=== PATIENT | female | born 1955 | race Caucasian/White ===

== ENCOUNTER 2021-10-08 20:13 | Emergency (ER) | payer MEDICARE, SELFPAY ==
[2021-10-08 20:25] VITALS: BP 118/92; BP 135/65; PULSE 74; PULSE 84; RESP 22; TEMP 36.7; O2SAT 98; BMI 33.4
--- NOTE | 2021-10-08 20:40 | ED_ITS ---
HPI - Anxiety General Chief Complaint: Anxiety Stated Complaint: crisis Time Seen by Provider: 10/08/21 20:39 Source: patient Mode of arrival: ambulatory Limitations: no limitations History of Present Illness HPI narrative: patient is depressed and anxious about her mother and her brothers don't help. Today she thought that she does not want to live anymore. Patient does not have a therapist or psychiatrist MD complaint: anxiety Onset (ago): month(s) Severity: moderate Quality: constant Place: home Associated symptoms: denies other symptoms Related Data Allergies Allergy/AdvReac Type Severity Reaction Status Date / Time Penicillins [PENICILLINS] Allergy Intermediate HIVES Unverified 02/03/20 15:57 adhesive [ADHESIVE] Allergy Mild SKIN COMES Unverified 02/03/20 15:57 OFF WITH TAPE penicillin G Allergy Unknown hives Verified 07/22/19 00:00 adhesive tape AdvReac Unknown Uncoded 07/22/19 00:00 Review of Systems Constitutional: Constitutional: Reports no additional constitutional complaints Eyes: Eyes: Reports no additional eye complaints ENT: Denies dizziness Cardiovascular: Cardiovascular: Reports no additional cardiovascular complaint s Respiratory: Respiratory: Reports as per HPI Gastrointestinal: Gastrointestinal: Reports no additional gastrointestinal complaints Genitourinary: Genitourinary: Reports no additional female genitourinary complaints Musculoskeletal: Musculoskeletal: Reports no additional musculoskeletal complaints Integumentary/Breasts: Skin/Breast: Denies rash Neurologic: Reports system reviewed and no additional complaints, except as documented, Denies dizziness and Denies Sensory deficit (Neuro) Psychiatric: Psychiatric: Denies anxiety PMFSH Social History Social History Alcohol intake: current Alcohol intake frequency: a few times a month Patient Tobacco Use Status: Never used Tobacco Use of substances other than those prescribed or required for medical reasons: No Advance Directives: No Advance Directives Information Provided: No Physical Exam Vital Signs: Vital Signs: Last Vital Signs Temp 98.4 F 10/08/21 21:44 Pulse 80 10/08/21 21:44 Resp 16 10/08/21 21:44 BP 148/82 H 10/08/21 21:44 Pulse Ox 94 10/08/21 21:44 BMI result Body Mass Index 33.4 Const: Other: Anxious and tearfult General: healthy appearing Nutritional Appearance: average body habitus Orientation/consciousness: oriented to person and patient oriented x3 Limitations: no limitations HEENT: Head: Yes normal to inspection Ears: external ears normal General nose exam: Normal external nose present Mouth: Normal oral and palatal mucosa present and oropharynx normal Throat: Yes posterior oropharynx normal Eyes: General: appearance normal, both eyes and all related structures Neck: Other: supple Neck: Yes normal visual inspection Chest: Chest palpation & inspection: normal inspection of the chest Resp: Auscultation: clear to auscultation bilaterally Cardio: Jugular venous distension: no JVD Rate: regular rate Rhythm: regular rhythm Heart sounds: S1 normal heart sound present and S2 normal heart sound present GI: Inspection: Yes normal to inspection Palpation (GI): Soft to palpation, nontender and No hepatosplenomegaly present Auscultation: normal bowel sounds : General: Yes no CVA tenderness Back/Spine/Pelvis: Back: no CVA tenderness Skin: General skin exam: no rashes or lesions noted Neuro: General: oriented to person and patient oriented x3 Cranial nerves: Yes CN's II-XII intact bilaterally Motor exam (neuro): 5/5 motor strength present throughout Sensory Exam: No Sensory deficit (Neuro) Extrem: General: Yes normal to inspection Psych: Appearance: grossly normal Course Reevaluation(s) Reevaluation #1: Despite the patients alcohol level she is acting sober, she adamantly denies a suicide plan. Her agrees that she has never hurt herself and would never do that to her grandchildren. He is comfortable with the plan and has no concerns for suicide Time: 23:13 MDM - Anxiety Lab Data Result diagrams: 10/08/21 21:20 10/08/21 21:20 Labs: Lab Results 10/08/21 10/08/21 10/08/21 Range/Units 21:20 21:20 21:20 WBC 8.2 (4.8-10.8) X10*3/uL RBC 3.83 L (4.20-5.50) X10*6/uL Hgb 11.9 L (12.0-16.0) g/dl Hct 34.0 L (37.0-47.0) % MCV 88.8 (80.0-98.0) fL MCH 31.1 (27.0-33.0) pg MCHC 35.0 (31.0-35.0) g/dl RDW 13.0 (11.0-16.0) % Plt Count 196 (160-400) X10*3/uL MPV 10.7 (9.4-12.3) fL Immature Gran % (Auto) 0.2 (0.0-0.4) % Neut % (Auto) 59.6 (45-73) % Lymph % (Auto) 30.4 (20-40) % [place] % (Auto) 7.7 (2-11) % Eos % (Auto) 1.2 (0-4) % Baso % (Auto) 0.9 (0-2) % Lymph # (Auto) 2.5 (1.2-4.9) X10*3/uL [place] # (Auto) 0.6 (0.1-1.2) X10*3/uL Eos # (Auto) 0.1 (0.0-0.4) X10*3/uL Baso # (Auto) 0.1 (0.0-0.2) X10*3/uL Abs Immat Gran (auto) 0.02 (0.00-0.03) X10*3/uL Absolute Neuts (auto) 4.9 (2.0-8.3) x10*3/uL Absolute Nucleated RBC 0.000 (0.0-0.012) X10*3/uL Nucleated RBC % (auto) 0.0 (0.0-0.2) /100WBC Sodium 141 (135-145) mmol/L Potassium 3.9 (3.3-5.1) mmol/L Chloride 109 H (96-108) mmol/L Carbon Dioxide 22 (22-29) mmol/L Anion Gap 14 (12-20) BUN 15 (9-16) mg/dL Creatinine 0.74 (0.5-1.4) mg/dL Estim Creat Clear Calc 92.3 Estimated GFR > 60 Random Glucose 83 (60-115) mg/dL Calcium 8.7 (8.4-10.2) mg/dL Total Bilirubin 0.7 (0.0-1.0) mg/dL AST 19 (5-31) U/L ALT 14 (0-31) U/L Alkaline Phosphatase 85 (39-117) U/L Total Protein 6.2 L (6.5-8.0) g/dL Albumin 3.8 (3.5-5.0) g/dL Salicylates < 5.0 L (15-30) mg/dL Urine Opiates Screen Not Detected (Not Detect) Urine Fentanyl Screen Not Detected (Not Detect) Acetaminophen < 1 (<30) mcg/mL Ur Barbiturates Screen Not Detected (Not Detect) Ur Phencyclidine Scrn Not Detected (Not Detect) Ur Amphetamines Screen Not Detected (Not Detect) U Benzodiazepines Scrn Not Detected (Not Detect) Urine Cocaine Screen Not Detected (Not Detect) U Marijuana (THC) Screen Not Detected (Not Detect) Ethyl Alcohol mg/dL 10/08/21 Range/Units 21:20 WBC (4.8-10.8) X10*3/uL RBC (4.20-5.50) X10*6/uL Hgb (12.0-16.0) g/dl Hct (37.0-47.0) % MCV (80.0-98.0) fL MCH (27.0-33.0) pg MCHC (31.0-35.0) g/dl RDW (11.0-16.0) % Plt Count (160-400) X10*3/uL MPV (9.4-12.3) fL Immature Gran % (Auto) (0.0-0.4) % Neut % (Auto) (45-73) % Lymph % (Auto) (20-40) % [place] % (Auto) (2-11) % Eos % (Auto) (0-4) % Baso % (Auto) (0-2) % Lymph # (Auto) (1.2-4.9) X10*3/uL [place] # (Auto) (0.1-1.2) X10*3/uL Eos # (Auto) (0.0-0.4) X10*3/uL Baso # (Auto) (0.0-0.2) X10*3/uL Abs Immat Gran (auto) (0.00-0.03) X10*3/uL Absolute Neuts (auto) (2.0-8.3) x10*3/uL Absolute Nucleated RBC (0.0-0.012) X10*3/uL Nucleated RBC % (auto) (0.0-0.2) /100WBC Sodium (135-145) mmol/L Potassium (3.3-5.1) mmol/L Chloride (96-108) mmol/L Carbon Dioxide (22-29) mmol/L Anion Gap (12-20) BUN (9-16) mg/dL Creatinine (0.5-1.4) mg/dL Estim Creat Clear Calc Estimated GFR Random Glucose (60-115) mg/dL Calcium (8.4-10.2) mg/dL Total Bilirubin (0.0-1.0) mg/dL AST (5-31) U/L ALT (0-31) U/L Alkaline Phosphatase (39-117) U/L Total Protein (6.5-8.0) g/dL Albumin (3.5-5.0) g/dL Salicylates (15-30) mg/dL Urine Opiates Screen (Not Detect) Urine Fentanyl Screen (Not Detect) Acetaminophen (<30) mcg/mL Ur Barbiturates Screen (Not Detect) Ur Phencyclidine Scrn (Not Detect) Ur Amphetamines Screen (Not Detect) U Benzodiazepines Scrn (Not Detect) Urine Cocaine Screen (Not Detect) U Marijuana (THC) Screen (Not Detect) Ethyl Alcohol 259 mg/dL Discharge Plan Discharge Clinical Impression: Alcoholism, Acute anxiety, Depression Patient Disposition: Home, Self-Care Instructions: Alcohol Dependence (ED), Anxiety (ED), Depression (ED) Additional Instructions: [facility] with [facility], return for worsening depression Referrals: Miesha Wiseman MD [Primary Care Provider] - 5 days
[2021-10-08 21:25] LABS: MANUAL DIFF FLAG NO
[2021-10-08 21:29] LABS: Basophils Absolute Auto 0.1 X10*3/uL (0.0-0.2); Basophils Percent Auto 0.9 % (0-2); Eosinophils Absolute Auto 0.1 X10*3/uL (0.0-0.4); Eosinophils Percent Auto 1.2 % (0-4); Hemoglobin 11.9 g/dl (12.0-16.0); Imm Gran Abs Auto 0.02 X10*3/uL (0.00-0.03); Imm Gran Pct Auto 0.2 % (0.0-0.4); Lymphocytes Absolute Auto 2.5 X10*3/uL (1.2-4.9); Lymphocytes Percent Auto 30.4 % (20-40); Mean Corpuscular Hemoglobin 31.1 pg (27.0-33.0); Mean Corpuscular Volume 88.8 fL (80.0-98.0); Mean Platelet Volume 10.7 fL (9.4-12.3); Monocytes Absolute Auto 0.6 X10*3/uL (0.1-1.2); Monocytes Percent Auto 7.7 % (2-11); Neutrophils Absolute Auto 4.9 x10*3/uL (2.0-8.3); Neutrophils Percent Auto 59.6 % (45-73); Platelet Count 196 X10*3/uL (160-400); Red Blood Count 3.83 X10*6/uL (4.20-5.50); White Blood Count 8.2 X10*3/uL (4.8-10.8)
[2021-10-08 21:40] LABS: Ethanol 259 mg/dL
[2021-10-08 21:43] LABS: Amphetamine Screen Urine Not Detected (Not Detect); Barbiturates, Urine Not Detected (Not Detect); Benzodiazepines Screen Urine Not Detected (Not Detect); Cannabinoid Screen Urine Not Detected (Not Detect); Cocaine Screen Urine Not Detected (Not Detect); Fentanyl, urine Not Detected (Not Detect); Opiate Screen Urine Not Detected (Not Detect); Phencyclidine Screen Urine Not Detected (Not Detect)
[2021-10-08 21:44] VITALS: BP 148/82; PULSE 80; RESP 16; TEMP 36.9; O2SAT 94
[2021-10-08 21:45] LABS: Acetaminophen LAB < 1 mcg/mL (<30); Alanine Aminotransferase 14 U/L (0-31); Albumin Level 3.8 g/dL (3.5-5.0); Alkaline Phosphatase 85 U/L (39-117); Anion Gap 14 (12-20); Aspartate Amino Transferase 19 U/L (5-31); Bilirubin Total 0.7 mg/dL (0.0-1.0); Blood Urea Nitrogen 15 mg/dL (9-16); Calcium 8.7 mg/dL (8.4-10.2); Carbon Dioxide 22 mmol/L (22-29); Chloride 109 mmol/L (96-108); Creatinine Clr Calc Pharmacy 92.3; Estimated Glomerular Filt Rate > 60; Glucose Random 83 mg/dL (60-115); Potassium 3.9 mmol/L (3.3-5.1); Salicylate < 5.0 mg/dL (15-30); Sodium 141 mmol/L (135-145); Total Protein 6.2 g/dL (6.5-8.0)
--- NOTE | 2021-10-08 21:49 | PC.NURSE ---
Pt stated I'm not waiting 24 hours to see a therapist. Christiano RN said that he would inquire about how much time it takes, but did not know exactly.
[2021-10-08 23:19] VITALS: BP 139/76; PULSE 87; RESP 18; TEMP 36.9; O2SAT 98
== END 2021-10-08 23:21 | disposition home or self-care (01) ==
PROVIDERS: Emergency Provider Emergency Medicine; PCP Internal Medicine
DX: F10.20 Alcohol dependence, uncomplicated (principal); Y90.8 Blood alcohol level of 240 mg/100 ml or more; F41.9 Anxiety disorder, unspecified; F32.A Depression, unspecified
CPT/HCPCS: 80053; 80143; 80179; 80307; 82077; 85025; 99284

== ENCOUNTER 2022-03-13 19:27 | Inpatient (IN) | payer MEDICARE, SELFPAY ==
[2022-03-13] VITALS (8 sets, daily range): BP systolic 72–118; BP diastolic 42–68; PULSE 80–88; RESP 15–22; TEMP 36.8; O2SAT 93–95; BMI 35.2
--- NOTE | ~2022-03-13 | XR_ITS ---
EXAMINATION: XR CHEST CLINICAL INFORMATION: Chest pain COMPARISON: 06/25/2018 TECHNIQUE: Frontal view of the chest was obtained. FINDINGS: There is a new rounded 7.5 cm sized left perihilar density seen. Differential would include pneumonia (most likely) versus a mass. Heart size normal. No pleural effusions. Bony thorax unremarkable. XR/XR chest 1V IMPRESSION: New left perihilar density as described above. Contrast-enhanced CT scan of the chest is recommended for further evaluation.
--- NOTE | ~2022-03-13 | CT_ITS ---
EXAMINATION: CT ANGIOGRAM OF THE CHEST WITH AND WITHOUT CONTRAST (CT PULMONARY ANGIOGRAM FOR PE) CLINICAL INFORMATION: Chest pain COMPARISON: Chest radiograph earlier today TECHNIQUE: Prior to contrast administration, noncontrast localization images were obtained. Subsequently, multidetector volumetric imaging was performed from the thoracic inlet to below the diaphragms following the administration of 65 mL Omnipaque 350 intravenous contrast. No contrast reaction reported Sagittal, coronal, and MIP oblique sagittal reformatted images were obtained on the CT workstation, uploaded to PACS, and reviewed. This CT examination was performed using dose optimization techniques as appropriate, variously including the following: *Automated exposure control *Adjustment of mA and/or kV according to patient size (this includes techniques or standardized protocols for targeted exams where dose is matched to indication/reason for exam; i.e. extremities or head) *Use of iterative reconstruction technique Total exam dose-length product 391 mGy-cm FINDINGS: QUALITY OF STUDY/CONTRAST BOLUS: Suboptimal. Both the thoracic aorta and the pulmonary veins are better opacified pulmonary arteries. PULMONARY ARTERIES: No large central emboli are seen. Beyond that, assessment is not possible THORACIC AORTA: No aneurysm or dissection. LUNG: Consolidation is present in the left lower lobe predominantly in the superior segment. Blood vessels can be seen traversing through the central air bronchograms are seen. PLEURA: No pleural effusion or pneumothorax. MEDIASTINUM: Normal heart size. No pericardial effusion. No hilar or mediastinal lymphadenopathy. No evidence of septal bowing or right heart strain. CHEST WALL/AXILLA: No axillary or internal mammary lymphadenopathy. OSSEOUS STRUCTURES: No acute or suspicious osseous abnormality. UPPER ABDOMEN: Probable hepatic steatosis. Gallstones are partially visualized with at least one 1.8 cm stone present. No reflux of contrast into the hepatic veins to suggest elevated right heart pressures. CT/CT angio chest PE protocol IMPRESSION: 1. No large central pulmonary emboli are seen. 2. Left lower lobe pneumonia. Follow-up after treatment to assure clearing. 3. Incidental note made of hepatic steatosis and cholelithiasis. VTE: indeterminate. If it is necessary to exclude pulmonary emboli, a repeat study or VQ scan can be performed for further evaluation.
--- NOTE | ~2022-03-13 | XR_ITS ---
EXAMINATION: XR CHEST CLINICAL INFORMATION: Chest pain COMPARISON: 03/14/2022 TECHNIQUE: Frontal view of the chest was obtained. FINDINGS: Cardiac leads overlie the chest. Right internal jugular central venous catheter terminates near the cavoatrial junction. The lungs are well expanded. Redemonstration of the left midlung airspace opacity. Central vascular prominence remains. No pleural effusion or pneumothorax. The cardiomediastinal silhouette is within normal limits. XR/XR chest 1V IMPRESSION: Right internal jugular central catheter terminates near the cavoatrial junction. No pneumothorax. Similar left lung airspace opacity.
--- NOTE | ~2022-03-13 | XR_ITS ---
EXAMINATION: XR CHEST CLINICAL INFORMATION: Shortness of breath COMPARISON: 03/13/2022 TECHNIQUE: Frontal view of the chest was obtained. FINDINGS: Cardiac leads overlie the chest. The lungs are well expanded. Redemonstration of the left midlung airspace opacity. Central vascular prominence. No pleural effusion or pneumothorax. The cardiomediastinal silhouette is within normal limits. XR/XR chest 1V IMPRESSION: Redemonstration of the left midlung airspace opacity. This is similar to prior. Follow-up to resolution.
--- NOTE | 2022-03-13 19:36 | ECG_ITS ---
Test Reason : CHEST PAIN Blood Pressure : / mmHG Vent. Rate : 084 BPM Atrial Rate : 084 BPM P-R Int : 128 ms QRS Dur : 082 ms QT Int : 358 ms P-R-T Axes : 024 -10 021 degrees QTc Int : 423 ms Normal sinus rhythm Minimal voltage criteria for LVH, may be normal variant ( R in aVL ) RSR' or QR pattern in V1 suggests right ventricular conduction delay Otherwise normal ECG When compared with ECG of 24-JUN-2018 23:05, No significant change was found Referred By: Generic ED Physician Electronically Signed By:ZAC WOLFE MD
[2022-03-13 20:05] LABS: Basophils Percent Auto 0.2 % (0-2); Eosinophils Absolute Auto 0.1 X10*3/uL (0.0-0.4); Eosinophils Percent Auto 0.7 % (0-4); Hematocrit 34.2 % (37.0-47.0); Hemoglobin 11.7 g/dl (12.0-16.0); Imm Gran Abs Auto 0.08 X10*3/uL (0.00-0.03); Imm Gran Pct Auto 0.4 % (0.0-0.4); Lymphocytes Absolute Auto 1.2 X10*3/uL (1.2-4.9); Lymphocytes Percent Auto 5.8 % (20-40); MANUAL DIFF FLAG SCAN; Mean Corpuscular HGB Conc 34.2 g/dl (31.0-35.0); Mean Corpuscular Hemoglobin 29.8 pg (27.0-33.0); Mean Corpuscular Volume 87.2 fL (80.0-98.0); Monocytes Absolute Auto 0.4 X10*3/uL (0.1-1.2); Monocytes Percent Auto 2.1 % (2-11); Neutrophils Absolute Auto 18.1 x10*3/uL (2.0-8.3); Neutrophils Percent Auto 90.8 % (45-73); Platelet Count 162 X10*3/uL (160-400); Red Blood Count 3.92 X10*6/uL (4.20-5.50); Red Cell Distribution Width 13.3 % (11.0-16.0); SCAN SMEAR FLAG 1; White Blood Count 19.9 X10*3/uL (4.8-10.8)
--- NOTE | 2022-03-13 20:12 | ED.URI ---
HPI - URI/Sore Throat General Chief Complaint: Upper Respiratory Symptoms Stated Complaint: chest pain, diff breathing, back pain Time Seen by Provider: 03/13/22 20:00 History of Present Illness HPI Narrative: Patient is a 66-year-old female with a history of coughing congestion upper respiratory symptoms that is been ongoing for last 3 weeks. Positive nausea positive shortness of breath patient tried to use steroid Tamiflu but to no avail. Patient never been tested positive for influenza. Feels generally weak. Patient had 3 COVID test all negative. She is vaccinated for COVID. She had a chest pain is pretty constant. Another type of chest pain that is worse with movement worse with coughing. Patient is from home. Positive dizziness weakness. Positive nausea vomiting Related Data Allergies Allergy/AdvReac Type Severity Reaction Status Date / Time Penicillins [PENICILLINS] Allergy Intermediate HIVES Verified 03/13/22 19:53 adhesive [ADHESIVE] Allergy Mild SKIN COMES Verified 03/13/22 19:53 OFF WITH TAPE penicillin G Allergy Unknown hives Verified 03/13/22 19:53 Review of Systems Review of Systems: positive generalized malaise weakness. Positive nausea vomiting positive coughing congestion upper respiratory symptoms positive chest pain Yes all other systems are reviewed and are negative PMFSH Past Medical History Attestation statement: The following information was validated with the patient. Medical History (Updated 03/14/22 @ 00:12 by Jade Orourke MD) Hypertension Hypothyroid Mood disorder Social History Social History Alcohol intake: current Alcohol intake frequency: a few times a month Patient Tobacco Use Status: Never used Tobacco Advance Directives: No Advance Directives Information Provided: No Physical Exam Vital Signs: Vital Signs: Last Vital Signs Temp 97.7 F 03/14/22 01:46 Pulse 77 03/14/22 02:12 Resp 19 03/14/22 01:46 BP 71/32 L 03/14/22 02:12 Pulse Ox 95 03/14/22 01:46 O2 Del Method 03/14/22 01:46 O2 Flow Rate 2.5 03/14/22 01:46 BMI result Body Mass Index 35.2 Appearance: Alert. Oriented X3. No acute distress. Eyes: Pupils equal, round and reactive to light. ENT: Pharynx normal. Neck: Normal inspection. Neck supple. No lymph nodes noted. No crepitus CVS: Normal heart rate and rhythm. Pulses normal. Normal S1 and S2 Respiratory: No respiratory distress. Breath sounds normal. No Wheezing. No rales Abdomen: Soft and nontender. No rigidity. No distention. good BS x4 Skin: Skin warm and dry. Normal skin color. Normal skin turgor. Extremities: No lower extremity edema. Neurovascular intact to all extremities. No Lacerations. No Rash Neuro: Oriented X 3. No motor deficit. No sensory deficit. Moving all extermities. No slurred speech MDM - URI/Sore Throat MDM Narrative Medical decision making narrative: Patient initially had a low blood pressure. Had a white count of approximately 20. Hep coughing upper respiratory 7 symptoms O2 sat was 95% on room air. Chest x-ray showed a questionable infiltrate. Patient's lactate was 1.9. Not elevated. Given IV fluids. Total of 30 cc/kilos IV fluids. Patient started on Rocephin immediately. Cultures were obtained. Will also start on azithromycin for outpatient pneumonia. CTA was done to rule out the possibility of PE. There was no pulmonary emboli only a large left lower lobe infiltrate. After IV fluids patient's blood pressure recovered to approximately 105/70. Patient's heart rate is 80. She is feels symptomatically improved. Patient to be admitted to the hospitalist service. Currently in stable condition. Her COVID test today was again negative. Flu RSV were negative. Troponin was negative. 9:30Patient reassessed after IV fluids symptomatic Hermelinda improved. Heart rate is 80. No distress. Will discussed with hospitalist team for admission. 1045pm Ask nursing to put in additional IVs. reinforce to nursing that we want to get the full 30 cc per kg of IV fluid in a soon as possible. Symptomatically patient continued to improve. 2 am patient initial blood pressure improved. We got a reading that was in the 1 teens over 70. However as the night progressed patient's blood pressure dropped again. Attempted to give patient midodrine. Attempted to give patient albumin. Unfortunately blood pressure continued to drop. A central line was placed Under ultrasound. Will start patient on Levophed. There is no ICU bed here at [facility]. We will go ahead and try to transfer patient to [facility] as [facility] is completely Full and is not accepting transfers Medical Records Attestation: I reviewed the patient's medical records. Lab Data Attestation: I reviewed the patient's lab results. Result diagrams: 03/13/22 19:53 03/13/22 19:53 Labs: Lab Results 03/13/22 03/13/22 03/13/22 Range/Units 19:53 19:53 19:53 WBC 19.9 H (4.8-10.8) X10*3/uL RBC 3.92 L (4.20-5.50) X10*6/uL Hgb 11.7 L (12.0-16.0) g/dl Hct 34.2 L (37.0-47.0) % MCV 87.2 (80.0-98.0) fL MCH 29.8 (27.0-33.0) pg MCHC 34.2 (31.0-35.0) g/dl RDW 13.3 (11.0-16.0) % Plt Count 162 (160-400) X10*3/uL MPV 11.0 (9.4-12.3) fL Immature Gran % (Auto) 0.4 (0.0-0.4) % Neut % (Auto) 90.8 H (45-73) % Lymph % (Auto) 5.8 L (20-40) % [place] % (Auto) 2.1 (2-11) % Eos % (Auto) 0.7 (0-4) % Baso % (Auto) 0.2 (0-2) % Lymph # (Auto) 1.2 (1.2-4.9) X10*3/uL [place] # (Auto) 0.4 (0.1-1.2) X10*3/uL Eos # (Auto) 0.1 (0.0-0.4) X10*3/uL Baso # (Auto) 0.0 (0.0-0.2) X10*3/uL Abs Immat Gran (auto) 0.08 H (0.00-0.03) X10*3/uL Absolute Neuts (auto) 18.1 H (2.0-8.3) x10*3/uL Absolute Nucleated RBC 0.000 (0.0-0.012) X10*3/uL Nucleated RBC % (auto) 0.0 (0.0-0.2) /100WBC Smear Tech's Comments VERIFIED D-Dimer High Sensitivty NG/ML Sodium 141 (135-145) mmol/L Potassium 3.9 (3.3-5.1) mmol/L Chloride 105 (96-108) mmol/L Carbon Dioxide 24 (22-29) mmol/L Anion Gap 16 (12-20) BUN 24 H D (9-16) mg/dL Creatinine 0.80 (0.5-1.4) mg/dL Estim Creat Clear Calc 83.7 Estimated GFR > 60 Random Glucose 117 H (60-115) mg/dL Lactic Acid (0.5-2.0) mmol/L Calcium 9.0 (8.4-10.2) mg/dL Troponin I High Sens < 3.5 (<3.5-17.0) ng/L COVID-19 ([facility]) (Negative) COVID-19 Clin Com Influenza Type A (PCR) (Negative) Influenza Type B (PCR) (Negative) RSV RNA Qual (PCR) (Negative) SARS-CoV-2 RNA (RT-PCR) (Negative) 03/13/22 03/13/22 03/13/22 Range/Units 19:53 19:53 20:36 WBC (4.8-10.8) X10*3/uL RBC (4.20-5.50) X10*6/uL Hgb (12.0-16.0) g/dl Hct (37.0-47.0) % MCV (80.0-98.0) fL MCH (27.0-33.0) pg MCHC (31.0-35.0) g/dl RDW (11.0-16.0) % Plt Count (160-400) X10*3/uL MPV (9.4-12.3) fL Immature Gran % (Auto) (0.0-0.4) % Neut % (Auto) (45-73) % Lymph % (Auto) (20-40) % [place] % (Auto) (2-11) % Eos % (Auto) (0-4) % Baso % (Auto) (0-2) % Lymph # (Auto) (1.2-4.9) X10*3/uL [place] # (Auto) (0.1-1.2) X10*3/uL Eos # (Auto) (0.0-0.4) X10*3/uL Baso # (Auto) (0.0-0.2) X10*3/uL Abs Immat Gran (auto) (0.00-0.03) X10*3/uL Absolute Neuts (auto) (2.0-8.3) x10*3/uL Absolute Nucleated RBC (0.0-0.012) X10*3/uL Nucleated RBC % (auto) (0.0-0.2) /100WBC Smear Tech's Comments D-Dimer High Sensitivty 367 NG/ML Sodium (135-145) mmol/L Potassium (3.3-5.1) mmol/L Chloride (96-108) mmol/L Carbon Dioxide (22-29) mmol/L Anion Gap (12-20) BUN (9-16) mg/dL Creatinine (0.5-1.4) mg/dL Estim Creat Clear Calc Estimated GFR Random Glucose (60-115) mg/dL Lactic Acid (0.5-2.0) mmol/L Calcium (8.4-10.2) mg/dL Troponin I High Sens (<3.5-17.0) ng/L COVID-19 ([facility]) Negative (Negative) COVID-19 Clin Com See Note Influenza Type A (PCR) NEGATIVE (Negative) Influenza Type B (PCR) NEGATIVE (Negative) RSV RNA Qual (PCR) NEGATIVE (Negative) SARS-CoV-2 RNA (RT-PCR) NEGATIVE (Negative) 03/13/22 Range/Units 20:36 WBC (4.8-10.8) X10*3/uL RBC (4.20-5.50) X10*6/uL Hgb (12.0-16.0) g/dl Hct (37.0-47.0) % MCV (80.0-98.0) fL MCH (27.0-33.0) pg MCHC (31.0-35.0) g/dl RDW (11.0-16.0) % Plt Count (160-400) X10*3/uL MPV (9.4-12.3) fL Immature Gran % (Auto) (0.0-0.4) % Neut % (Auto) (45-73) % Lymph % (Auto) (20-40) % [place] % (Auto) (2-11) % Eos % (Auto) (0-4) % Baso % (Auto) (0-2) % Lymph # (Auto) (1.2-4.9) X10*3/uL [place] # (Auto) (0.1-1.2) X10*3/uL Eos # (Auto) (0.0-0.4) X10*3/uL Baso # (Auto) (0.0-0.2) X10*3/uL Abs Immat Gran (auto) (0.00-0.03) X10*3/uL Absolute Neuts (auto) (2.0-8.3) x10*3/uL Absolute Nucleated RBC (0.0-0.012) X10*3/uL Nucleated RBC % (auto) (0.0-0.2) /100WBC Smear Tech's Comments D-Dimer High Sensitivty NG/ML Sodium (135-145) mmol/L Potassium (3.3-5.1) mmol/L Chloride (96-108) mmol/L Carbon Dioxide (22-29) mmol/L Anion Gap (12-20) BUN (9-16) mg/dL Creatinine (0.5-1.4) mg/dL Estim Creat Clear Calc Estimated GFR Random Glucose (60-115) mg/dL Lactic Acid 1.9 (0.5-2.0) mmol/L Calcium (8.4-10.2) mg/dL Troponin I High Sens (<3.5-17.0) ng/L COVID-19 ([facility]) (Negative) COVID-19 Clin Com Influenza Type A (PCR) (Negative) Influenza Type B (PCR) (Negative) RSV RNA Qual (PCR) (Negative) SARS-CoV-2 RNA (RT-PCR) (Negative) Procedures Central Line Placement Right IJ: Time Out Performed: Yes Patient Placed on Monitor/Pulse Ox: Yes MD Prep: mask, gown and gloves Central Line Prep: Chlorhexidine scrub Local Anesthetic: lidocaine 1% Amount of anesthesia used (mL): 3 Ultrasound Used for Placement: Yes Central Line Lumen Inserted: triple Post Procedure: sutured in place, good blood return, all ports aspirated, flushed, capped and sterile dressing applied Post Procedure X-Ray: no pneumothorax seen Patient Tolerated Procedure: well Complications: none Critical Care Time Critical Care Time Critical Care Time: Yes Total Critical Care Time: 90 Attestation: I have personally provided 90 minutes of critical care time exclusive of time spent on separately billable procedures. Time includes review of lab data, radiology results, discussion with consultants, and monitoring for potential decompensation. Interventions were performed as documented above Discharge Plan Discharge Clinical Impression: Pneumonia Patient Disposition: Admitted As Inpatient
[2022-03-13 20:17] LABS: COVID-19 Test Negative (Negative); IDNOW Serial# 55D5AD1C
[2022-03-13 20:20] LABS: Anion Gap 16 (12-20); Blood Urea Nitrogen 24 mg/dL (9-16); Carbon Dioxide 24 mmol/L (22-29); Chloride 105 mmol/L (96-108); Creatinine Clr Calc Pharmacy 83.7; Estimated Glomerular Filt Rate > 60; Glucose Random 117 mg/dL (60-115); Potassium 3.9 mmol/L (3.3-5.1); Sodium 141 mmol/L (135-145)
[2022-03-13 20:22] LABS: SLIDE REVIEW VERIFIED
[2022-03-13 20:28] LABS: Troponin-I High Sensitivity < 3.5 ng/L (<3.5-17.0)
[2022-03-13 20:29] LABS: D Dimer High Sensitivity 367 NG/ML
[2022-03-13] MEDS: iohexoL 350 MG/ML 100 ML INFUS..BTL IV (20:46)
[2022-03-13 20:54] LABS: Lactic Acid 1.9 mmol/L (0.5-2.0)
[2022-03-13] MEDS: 0.9 % Sodium Chloride 1,000 ML 999 ML IV ×2 (21:09→21:34)
[2022-03-13] MEDS: cefTRIAXone sodium 1 GM in 0.9 % Sodium Chloride 50 ML IV (21:09)
[2022-03-13 21:19] LABS: Influenza A PCR NEGATIVE (Negative); Influenza B PCR NEGATIVE (Negative); Resp Syncy Virus RNA Qual PCR NEGATIVE (Negative); SARS COV2 PCR INHOUSE NEGATIVE (Negative)
--- NOTE | 2022-03-13 21:37 | PC.NURSE ---
pt very uncomfortable - c/o 10/10 pain to lower back. MD Del Castillo aware. BP down to 72/47. iv fluids running x 2 liters w/ pressure bag. MD Del Castillo aware of pain but states priority is to get patient BP up. continuous monitoring in place.
[2022-03-13] MEDS: Azithromycin 500 MG in 0.9 % Sodium Chloride 250 ML 125 MG IV (23:09)
--- NOTE | 2022-03-13 23:21 | PC.NURSE ---
second iv line placed, pt receiving 4th liter bolus of normal saline. azithromycin running. pt still in 10/10 pain and very uncomfortable. Del Castillo aware. states he will order med once blood pressure remains stable. BP back down to 93/50. continuous monitoring in place. at bedside
[2022-03-13] MEDS: Benzonatate 100 MG CAPSULE PO (23:58)
[2022-03-13] MEDS: Enoxaparin Sodium 40 MG/0.4 ML SYRINGE SUBCUT (23:58)
[2022-03-14] VITALS (18 sets, daily range): BP systolic 71–132; BP diastolic 32–77; PULSE 51–92; RESP 14–26; TEMP 36.2–36.9; O2SAT 91–97; BMI 35.2
--- NOTE | 2022-03-14 00:08 | PM.IMHP ---
History of Present Illness Date of Service: 03/14/22 Chief Complaint: Dyspnea This is a 66-year-old female with pertinent history of essential hypertension, hypothyroidism, mood disorder who presents to the emergency department for evaluation of dyspnea. Patient states she had symptoms of upper respiratory infection including runny nose and watering of eyes for the last 3 weeks. She saw her PCP who gave her a steroid pack and Tamiflu but that did not help her. She tested multiple times for COVID and flu and was negative. Subsequently patient developed productive cough with chills. No documented temperature. Also has associated generalized weakness and pleuritic chest discomfort. Did have episodes of nausea and nonbloody emesis. Denies palpitations, abdominal discomfort, changes in urinary or bowel habits. Does have sick contact at home In the ER, patient was found to be hypotensive and imaging was concerning for left-sided infiltrate. Review of Systems Review of Systems: All 13 review of systems are negative except as noted in [facility] Medical History (Updated 03/14/22 @ 00:12 by Jade Orourke MD) Hypertension Hypothyroid Mood disorder Functional capacity: independent ambulation Social History Alcohol intake: current Alcohol intake frequency: a few times a month Patient Tobacco Use Status: Never used Tobacco Advance Directives: No Advance Directives Information Provided: No Meds Allergies Allergy/AdvReac Type Severity Reaction Status Date / Time Penicillins [PENICILLINS] Allergy Intermediate HIVES Verified 03/13/22 19:53 adhesive [ADHESIVE] Allergy Mild SKIN COMES Verified 03/13/22 19:53 OFF WITH TAPE penicillin G Allergy Unknown hives Verified 03/13/22 19:53 Active Medications: Current Medications Acetaminophen (Acetaminophen 325 Mg Tablet) 650 mg PO Q6H PRN PRN Reason: Pain, Mild (Pain Scale 1-3) Enoxaparin Sodium (Enoxaparin Sodium 40 Mg/0.4 Ml Syringe) 40 mg SUBCUT Q24H [facility]ENDING SALE TO [facility] Last Admin: 03/13/22 23:58 Dose: 40 mg Azithromycin 500 mg/ Sodium (Chloride) 250 mls @ 125 mls/hr IV ONCE ONE Stop: 03/14/22 00:13 Last Admin: 03/13/22 23:09 Dose: 125 mls/hr Azithromycin 500 mg/ Sodium (Chloride) 250 mls @ 125 mls/hr IV Q24H [facility] Ceftriaxone Sodium 1 gm/ (Sodium Chloride) 50 mls @ 100 mls/hr IV Q24H [facility] TO [facility] Melatonin (Melatonin 3 Mg Tablet) 6 mg PO BEDTIME PRN PRN Reason: Insomnia Ondansetron HCl (Ondansetron Hcl 4 Mg/2 Ml Vial) 4 mg IVPUSH Q8H PRN PRN Reason: Nausea and Vomiting Pharmacy Consult (Consult Rx Perform Med Rec) 1 each MISCELLANE ONCE PRN PRN Reason: Consult order Sodium Chloride (0.9 % Sodium Chloride Flush 3 Ml Syringe) 3 ml IVFLUSH QSHIFT [facility]END[facility] TO [facility] Physical Exam Vital Signs and Narrative: Vital Signs: Last Vital Signs Temp 98.2 F 03/13/22 19:50 Pulse 85 03/13/22 23:37 Resp 20 03/13/22 23:37 BP 118/68 03/13/22 23:37 Pulse Ox 93 03/13/22 23:37 O2 Del Method 03/13/22 23:37 BMI result Body Mass Index 35.2 Results Labs CBC and Chem 7: 03/13/22 19:53 03/13/22 19:53 Labs: Laboratory Results - last 24 hr 03/13/22 03/13/22 03/13/22 19:53 19:53 19:53 MCV 87.2 MCH 29.8 MCHC 34.2 RDW 13.3 Plt Count 162 MPV 11.0 Immature Gran % (Auto) 0.4 Neut % (Auto) 90.8 H Lymph % (Auto) 5.8 L [place] % (Auto) 2.1 Eos % (Auto) 0.7 Baso % (Auto) 0.2 Lymph # (Auto) 1.2 [place] # (Auto) 0.4 Eos # (Auto) 0.1 Baso # (Auto) 0.0 Abs Immat Gran (auto) 0.08 H Absolute Neuts (auto) 18.1 H Absolute Nucleated RBC 0.000 Nucleated RBC % (auto) 0.0 Smear Tech's Comments VERIFIED D-Dimer High Sensitivty Anion Gap 16 Estim Creat Clear Calc 83.7 Estimated GFR > 60 Random Glucose 117 H Lactic Acid Calcium 9.0 Troponin I High Sens < 3.5 COVID-19 ([facility]) COVID-19 Clin Com Influenza Type A (PCR) Influenza Type B (PCR) RSV RNA Qual (PCR) SARS-CoV-2 RNA (RT-PCR) 03/13/22 03/13/22 03/13/22 19:53 19:53 20:36 MCV MCH MCHC RDW Plt Count MPV Immature Gran % (Auto) Neut % (Auto) Lymph % (Auto) [place] % (Auto) Eos % (Auto) Baso % (Auto) Lymph # (Auto) [place] # (Auto) Eos # (Auto) Baso # (Auto) Abs Immat Gran (auto) Absolute Neuts (auto) Absolute Nucleated RBC Nucleated RBC % (auto) Smear Tech's Comments D-Dimer High Sensitivty 367 Anion Gap Estim Creat Clear Calc Estimated GFR Random Glucose Lactic Acid Calcium Troponin I High Sens COVID-19 ([facility]) Negative COVID-19 Clin Com See Note Influenza Type A (PCR) NEGATIVE Influenza Type B (PCR) NEGATIVE RSV RNA Qual (PCR) NEGATIVE SARS-CoV-2 RNA (RT-PCR) NEGATIVE 03/13/22 20:36 MCV MCH MCHC RDW Plt Count MPV Immature Gran % (Auto) Neut % (Auto) Lymph % (Auto) [place] % (Auto) Eos % (Auto) Baso % (Auto) Lymph # (Auto) [place] # (Auto) Eos # (Auto) Baso # (Auto) Abs Immat Gran (auto) Absolute Neuts (auto) Absolute Nucleated RBC Nucleated RBC % (auto) Smear Tech's Comments D-Dimer High Sensitivty Anion Gap Estim Creat Clear Calc Estimated GFR Random Glucose Lactic Acid 1.9 Calcium Troponin I High Sens COVID-19 ([facility]) COVID-19 Clin Com Influenza Type A (PCR) Influenza Type B (PCR) RSV RNA Qual (PCR) SARS-CoV-2 RNA (RT-PCR) Imaging Radiologist's Impressions: Impressions Chest X-Ray 03/13/22 20:15 IMPRESSION: New left perihilar density as described above. Contrast-enhanced CT scan of the chest is recommended for further evaluation. Chest CTA 03/13/22 21:03 IMPRESSION: 1. No large central pulmonary emboli are seen. 2. Left lower lobe pneumonia. Follow-up after treatment to assure clearing. 3. Incidental note made of hepatic steatosis and cholelithiasis. VTE: indeterminate. If it is necessary to exclude pulmonary emboli, a repeat study or VQ scan can be performed for further evaluation. Assessment and Plan (1) Sepsis due to pneumonia: Status: Acute (2) Hypertension: Status: Acute (3) Hypothyroid: Status: Acute (4) Mood disorder: Status: Acute Plan This is a 66-year-old female with pertinent history of essential hypertension, hypothyroidism, mood disorder who presents to the emergency department for evaluation of dyspnea and productive cough. #. Sepsis secondary to community-acquired pneumonia -will admit patient and resuscitate with IV crystalloids. Lactic acid and blood cultures obtained. Treating with empiric antibiotics, ceftriaxone and azithromycin. Currently maintaining normal oxygen saturation on room air. #. Essential hypertension -hold home p.o. medications #. Hypothyroidism -continue levothyroxine #. Mood disorder -continue fluoxetine DVT prophylaxis: Lovenox 40 mg daily Full code Diet: Cardiac diet Patient will require two night minimum hospital stay for need for IV antibiotics Quality Stroke Does the patient have a stroke diagnosis?: No VTE Prior VTE?: No VTE Risk Level:: Medical - moderate - high VTE Device Contraindication: Treatment Not Indicated VTE Drug Contraindication: N/A - Med Ordered
[2022-03-14] MEDS: Ketorolac Tromethamine 30 MG/ML VIAL IVPUSH (01:17)
[2022-03-14] MEDS: Albumin Human 25 % 100 ML IV (01:17)
[2022-03-14] MEDS: Midodrine HCl 10 MG TABLET PO (01:27)
[2022-03-14] MEDS: dexAMETHasone sod phosphate 10 MG/ML VIAL IVPUSH (01:27)
[2022-03-14 01:41] LABS: B Type Natriuretic Peptide 401 pg/mL (<100)
--- NOTE | 2022-03-14 02:08 | PC.NURSE ---
CALL OUT TO [facility] TRANSFER LINE @0209 REGARDING TRANSFER. SPOKE TO ELLE FROM THE LINE AND WAS INFORMED THEY ARE NOT ACCEPTING ANY TRANSFERS DUE TO NO ICU BEDS
--- NOTE | 2022-03-14 02:11 | PC.NURSE ---
Notified Dr. Orourke notified regarding pt low blood pressure, Albumin ordered with fluids. Pt continued to drop. Dr. Orourke came into assess pt. Pt moved from from 17 to room 5 int he ER. Central line placed Dr Del Castillo, order for Levophed to be started. Plan is for transfer to [facility]. Will continue to monitor.
--- NOTE | 2022-03-14 02:13 | PC.NURSE ---
CALL OUT TO [facility] @0212 THEY ARE NOT ACCEPTING ANY ICU TRANSFERS DUE TO FULL CAPACITY
--- NOTE | 2022-03-14 02:15 | PC.NURSE ---
blood pressures dropping progressively, down to 71/32, MD Orourke aware of the blood pressures. albumin IV, decadron IV, promantine po administered per jul. BNP redrawn, chest x ray redone d/t patient receiving 4L bolus fluids - bp not responsive - pt becoming increasing short of breath, worsening junky cough/congestion, 90% RA. pt placed on 2-3L O2 NC for sob, states it has given her lots of relief. breathing improved. BPs still low 69/27, hospitalist aware. pt moved to room 5 in ED, central line being placed by Del Castillo, levofed started. continuous monitoring in place. transfer request to another hospital
--- NOTE | 2022-03-14 02:27 | PC.NURSE ---
CALL OUT TO [facility] AT @[phone]
--- NOTE | 2022-03-14 02:34 | PC.NURSE ---
Levophed started blood pressure has improved.
--- NOTE | 2022-03-14 02:36 | PC.NURSE ---
FACE SHEET FAXED AT [phone] TO [facility]
--- NOTE | 2022-03-14 02:37 | PC.NURSE ---
I assumed care of this pt upon her being moved from ED bed 17 to ED bed 5 due to persistent hypotension after receiving 4L of NS. Pt was moved to bed 5 and Del Castillo MD came to bedside and placed a R IJ TLCL. The pt tolerated the procedure well. He sat's remained 95% or better with 2L via nasal cannula. Immediately after placement and verification of central line placement we initiated Levophed. Her BP, initially at 80/40 prior to starting Levopohed, has increased to 109/50's. Del Castillo MD and hospitalist notified. After TLCL placement the pt's HOB was elevated and she stated she felt much better, my chest feels better and when I cough it doesn't hurt as much. She still appears slightly pale, she is no longer diaphoretic (she was very diaphoretic when her BP decreased to 70's systolically prior to bringing her to bed [address] central line). No nausea. NO vomiting. Respirations are spontaneous and non-labored, RR 24, no cyanosis, she speaks in full sentences. Occasional congested sounding non-productive cough noted. We will continue to monitor Yancy Lundberg and potentially prepare her for transport to an ICu at [facility] as there are no ICU beds available here at [facility].
--- NOTE | 2022-03-14 03:13 | PC.NURSE ---
The pt was offered the opportunity to take an ICU bed at [facility]. Per the pt she was asked do you want to go to a hospital in [facility] to which she answered no. I was not present for this but spoke with her after this. She asked me do I need an ICu bed? Why? What happens if I stay here? The pt then stated she thought [facility] was very far, she was unaware that it was only 45 minutes away. I spoke with Joshua FLYNN about possibly talking to the pt again about transferring to [facility] and why she needs an ICU bed and that [place] is not that far away. Joshua FLYNN disagrees that she needs to be transferred, states the pt will be weaned from the Levophed starting at 0500. I asked him why he thought we would so soon be able to wean the pt from Levophed considering the fact that she did not respond to 4L of normal saline. He did not reply other than to say that we will wean the pt starting at 0500. I continued to inform the doctor that I disagreed with this and the pt needs to be further educated on the severity of her symptoms and the indication for ICU level of care.
--- NOTE | 2022-03-14 05:08 | PC.NURSE ---
Yancy Lundberg continues to rest in bed. At this time the Levophed has been stopped and we are currently monitoring her BP response to this. She is sleeping but wakes to verbal stimuli at which time she is alert and oriented x 3, without chest pain, without shortness of breath. PureWICk was placed by Janelle Kearney and continues to drain clear, ashok urine into suctions cannister. Will continue to monitor. NSR rate 80's on bedside monitor.
[2022-03-14] MEDS: Levothyroxine Sodium 125 MCG TABLET PO (06:45)
[2022-03-14 07:03] LABS: MANUAL DIFF FLAG NO
[2022-03-14 07:21] LABS: Anion Gap 14 (12-20); Blood Urea Nitrogen 28 mg/dL (9-16); Carbon Dioxide 20 mmol/L (22-29); Chloride 110 mmol/L (96-108); Creatinine Clr Calc Pharmacy 80.8; Estimated Glomerular Filt Rate > 60; Glucose Random 146 mg/dL (60-115); Potassium 3.8 mmol/L (3.3-5.1); Sodium 140 mmol/L (135-145)
[2022-03-14 07:29] LABS: Basophils Percent Auto 0.2 % (0-2); Eosinophils Absolute Auto 0.2 X10*3/uL (0.0-0.4); Eosinophils Percent Auto 0.9 % (0-4); Hematocrit 29.5 % (37.0-47.0); Hemoglobin 10.1 g/dl (12.0-16.0); Imm Gran Abs Auto 0.37 X10*3/uL (0.00-0.03); Imm Gran Pct Auto 2.1 % (0.0-0.4); Lymphocytes Absolute Auto 0.5 X10*3/uL (1.2-4.9); Lymphocytes Percent Auto 2.6 % (20-40); Mean Corpuscular HGB Conc 34.2 g/dl (31.0-35.0); Mean Corpuscular Hemoglobin 30.1 pg (27.0-33.0); Mean Corpuscular Volume 87.8 fL (80.0-98.0); Mean Platelet Volume 11.8 fL (9.4-12.3); Monocytes Percent Auto 5.4 % (2-11); Neutrophils Absolute Auto 15.5 x10*3/uL (2.0-8.3); Neutrophils Percent Auto 88.8 % (45-73); Platelet Count 134 X10*3/uL (160-400); Red Blood Count 3.36 X10*6/uL (4.20-5.50); Red Cell Distribution Width 13.6 % (11.0-16.0); White Blood Count 17.5 X10*3/uL (4.8-10.8)
[2022-03-14 07:49] LABS: Calcium 7.9 mg/dL (8.4-10.2)
[2022-03-14] MEDS: FLUoxetine HCl 20 MG CAPSULE PO (08:54)
[2022-03-14] MEDS: Acetaminophen 325 MG TABLET 650 MG PO ×2 (08:54→16:02)
--- NOTE | 2022-03-14 08:55 | PHA.MEDREC ---
Pharmacy Consult ? Medication Reconciliation Pharmacy has completed the medication reconciliation.Spoke to patient about at home meds. She states almost done with methylprednisolone dose pack and was supposed to take one more tablet this morning (03/14/22).
--- NOTE | 2022-03-14 12:09 | PC.NURSE ---
report taken from [facility] care at 11am, patient was sleeping, woke to verbal stimulus, family at bedside, vitals have been stable, cardiac onitor intact sinus lisandra 50s, call hollingsworth within reach, will continue to monitor
--- NOTE | 2022-03-14 13:26 | HO.PM.IMPN ---
Subjective Subjective Date of Service: 03/14/22 Interval History: seen and examined this morning follow up for Pneumonia required pressors overnight, weaned off levophed around 5am, BP stable thus far patient tired, didn't sleep much overnight; overall feels improved since admission ongoing cough, no SOB at this time Review of Systems Review of Systems: Yes all other systems are reviewed and are negative Constitutional Constitutional: Denies chills and Denies fever(s) Cardiovascular Cardiovascular: Denies chest pain, Denies palpitations and Denies dyspnea Respiratory Respiratory: Reports cough and Denies dyspnea Gastrointestinal Gastrointestinal: Denies abdominal pain, Denies nausea and Denies vomiting Endocrine Endocrine: Denies palpitations Physical Exam Vital Signs: Vital Signs: Last Vital Signs Temp 97.2 F 03/14/22 10:43 Pulse 54 03/14/22 10:43 Resp 17 03/14/22 10:43 BP 132/61 03/14/22 10:43 Pulse Ox 93 03/14/22 10:43 O2 Del Method 03/14/22 10:43 O2 Flow Rate 4 03/14/22 02:47 BMI result Body Mass Index 35.2 Const: General: comfortable, alert and awake Nutritional Appearance: overweight Orientation/consciousness: patient oriented x3 HEENT: Other: Right IJ present Resp: Effort & Inspection: normal respiratory effort, able to speak in complete sentences and not tachypneic Cardio: Rate: regular rate Heart sounds: S1 normal heart sound present and S2 normal heart sound present GI: Inspection: No distended Palpation (GI): Soft to palpation and nontender Neuro: General: patient oriented x3 and CN's II-XI intact bilaterally Extrem: Other: able to move all 4 extremities spontaneously Objective Data Active Medications Acetaminophen (Acetaminophen 325 Mg Tablet) 650 mg PO Q6H PRN PRN Reason: Pain, Mild (Pain Scale 1-3) Last Admin: 03/14/22 08:54 Dose: 650 mg Documented By: YVAN Benzonatate (Benzonatate 100 Mg Capsule) 200 mg PO TID PRN PRN Reason: cough Enoxaparin Sodium (Enoxaparin Sodium 40 Mg/0.4 Ml Syringe) 40 mg SUBCUT Q24H [facility] Last Admin: 03/13/22 23:58 Dose: 40 mg Documented By: FREDO Fluoxetine HCl (Fluoxetine Hcl 20 Mg Capsule) 20 mg PO DAILY [facility] Last Admin: 03/14/22 08:54 Dose: 20 mg Documented By: YVAN Azithromycin 500 mg/ Sodium (Chloride) 250 mls @ 125 mls/hr IV Q24H [facility] Ceftriaxone Sodium 1 gm/ (Sodium Chloride) 50 mls @ 100 mls/hr IV Q24H [facility] Levothyroxine Sodium (Levothyroxine Sodium 125 Mcg Tablet) 125 mcg PO DAILY@0600 [facility] Last Admin: 03/14/22 06:45 Dose: 125 mcg Documented By: AMAN Melatonin (Melatonin 3 Mg Tablet) 6 mg PO BEDTIME PRN PRN Reason: Insomnia Ondansetron HCl (Ondansetron Hcl 4 Mg/2 Ml Vial) 4 mg IVPUSH Q8H PRN PRN Reason: Nausea and Vomiting Pharmacy Consult (Consult Rx Perform Med Rec) 1 each MISCELLANE ONCE PRN PRN Reason: Consult order Sodium Chloride (0.9 % Sodium Chloride Flush 3 Ml Syringe) 3 ml IVFLUSH QSHIFT [facility] Last Admin: 03/14/22 08:02 Dose: Not Given Documented By: YVAN Non-Admin Reason: IV Running Labs CBC & Chem 7: 03/14/22 06:11 03/14/22 06:11 Labs: Laboratory Results - last 24 hr 03/13/22 03/13/22 03/13/22 19:53 19:53 19:53 MCV 87.2 MCH 29.8 MCHC 34.2 RDW 13.3 Plt Count 162 MPV 11.0 Immature Gran % (Auto) 0.4 Neut % (Auto) 90.8 H Lymph % (Auto) 5.8 L [place] % (Auto) 2.1 Eos % (Auto) 0.7 Baso % (Auto) 0.2 Lymph # (Auto) 1.2 [place] # (Auto) 0.4 Eos # (Auto) 0.1 Baso # (Auto) 0.0 Abs Immat Gran (auto) 0.08 H Absolute Neuts (auto) 18.1 H Absolute Nucleated RBC 0.000 Nucleated RBC % (auto) 0.0 Smear Tech's Comments VERIFIED D-Dimer High Sensitivty Anion Gap 16 Estim Creat Clear Calc 83.7 Estimated GFR > 60 Random Glucose 117 H Lactic Acid Calcium 9.0 Troponin I High Sens < 3.5 B-Natriuretic Peptide COVID-19 ([facility]) COVID-19 Clin Com Influenza Type A (PCR) Influenza Type B (PCR) RSV RNA Qual (PCR) SARS-CoV-2 RNA (RT-PCR) 03/13/22 03/13/22 03/13/22 19:53 19:53 20:36 MCV MCH MCHC RDW Plt Count MPV Immature Gran % (Auto) Neut % (Auto) Lymph % (Auto) [place] % (Auto) Eos % (Auto) Baso % (Auto) Lymph # (Auto) [place] # (Auto) Eos # (Auto) Baso # (Auto) Abs Immat Gran (auto) Absolute Neuts (auto) Absolute Nucleated RBC Nucleated RBC % (auto) Smear Tech's Comments D-Dimer High Sensitivty 367 Anion Gap Estim Creat Clear Calc Estimated GFR Random Glucose Lactic Acid Calcium Troponin I High Sens B-Natriuretic Peptide COVID-19 ([facility]) Negative COVID-19 Clin Com See Note Influenza Type A (PCR) NEGATIVE Influenza Type B (PCR) NEGATIVE RSV RNA Qual (PCR) NEGATIVE SARS-CoV-2 RNA (RT-PCR) NEGATIVE 03/13/22 03/14/22 03/14/22 20:36 01:15 06:11 MCV 87.8 MCH 30.1 MCHC 34.2 RDW 13.6 Plt Count 134 L MPV 11.8 Immature Gran % (Auto) 2.1 H Neut % (Auto) 88.8 H Lymph % (Auto) 2.6 L [place] % (Auto) 5.4 Eos % (Auto) 0.9 Baso % (Auto) 0.2 Lymph # (Auto) 0.5 L [place] # (Auto) 1.0 Eos # (Auto) 0.2 Baso # (Auto) 0.0 Abs Immat Gran (auto) 0.37 H Absolute Neuts (auto) 15.5 H Absolute Nucleated RBC 0.000 Nucleated RBC % (auto) 0.0 Smear Tech's Comments D-Dimer High Sensitivty Anion Gap Estim Creat Clear Calc Estimated GFR Random Glucose Lactic Acid 1.9 Calcium Troponin I High Sens B-Natriuretic Peptide 401 H COVID-19 ([facility]) COVID-19 Clin Com Influenza Type A (PCR) Influenza Type B (PCR) RSV RNA Qual (PCR) SARS-CoV-2 RNA (RT-PCR) 03/14/22 06:11 MCV MCH MCHC RDW Plt Count MPV Immature Gran % (Auto) Neut % (Auto) Lymph % (Auto) [place] % (Auto) Eos % (Auto) Baso % (Auto) Lymph # (Auto) [place] # (Auto) Eos # (Auto) Baso # (Auto) Abs Immat Gran (auto) Absolute Neuts (auto) Absolute Nucleated RBC Nucleated RBC % (auto) Smear Tech's Comments D-Dimer High Sensitivty Anion Gap 14 Estim Creat Clear Calc 80.8 Estimated GFR > 60 Random Glucose 146 H Lactic Acid Calcium 7.9 L D Troponin I High Sens B-Natriuretic Peptide COVID-19 ([facility]) COVID-19 Clin Com Influenza Type A (PCR) Influenza Type B (PCR) RSV RNA Qual (PCR) SARS-CoV-2 RNA (RT-PCR) Assessment and Plan (1) Sepsis due to pneumonia: Status: Acute Plan This is a 66-year-old female with pertinent history of essential hypertension, hypothyroidism, mood disorder who presents to the emergency department for evaluation of dyspnea and productive cough. Septic shock secondary to community-acquired pneumonia CT chest showing LLL pneumonia. Covid/flu/RSV negative BP dropped overnight despite adequate fluid resuscitation and required levophed drip, was able to be weaned off around 5am this morning. BP has remained stable thus far Lactic acid wnl blood cultures pending continue IV ceftriaxone, Azithromycin currently saturating on room air Essential hypertension -hold home norvasc, lisinopril Hypothyroidism -continue levothyroxine Mood disorder -continue fluoxetine DVT prophylaxis: Lovenox 40 mg daily Full code Attending - Dr. Resendiz patient requires ongoing inpatient hospitalization for management of shock/ pneumonia, IV antibiotics Quality Stroke Does the patient have a stroke diagnosis?: No VTE Prior VTE?: No VTE Risk Level:: Medical - moderate - high VTE Device Contraindication: Treatment Not Indicated VTE Drug Contraindication: N/A - Med Ordered
--- NOTE | 2022-03-14 13:49 | PC.NURSE ---
patient a&ox3, oob ambulating to bathroom with family-steady gait, quality assurance monitor body intact sinus lisandra, pt given lunch, call hollingsworth within reach, will continue to monitor
[2022-03-14] MEDS: 0.9 % Sodium Chloride Flush 3 ML SYRINGE IVFLUSH ×2 (16:03→22:37)
--- NOTE | 2022-03-14 16:07 | PC.NURSE ---
patient a&ox3, speaker wirer intact, pt ambulated with steady gait to bathroom and requested O2 due to dyspnea when she returned to room, vitals obtained and are stable, pt placed on 1.5L O2 nc for patient comfort, call hollingsworth within reach, pt medicated for headache will continue to monitor
[2022-03-14] MEDS: NaPROXEN 250 MG TABLET PO (18:54)
--- NOTE | 2022-03-14 18:56 | PC.NURSE ---
pt medicated for 10/26 headache
--- NOTE | 2022-03-14 19:36 | PC.NURSE ---
Report to Ramonita MONTOYA on IMC, Patient will transfer to floor for continued care. Family at bedside and patient aware POC.
--- NOTE | 2022-03-14 19:57 | MHC.CM.PN ---
IMM 03/14. HCP on file. Pfizer x3. PCP Miesha Hdz. Independent. Drives. Retired/parts clerk work. No DME/services. D/C plan: Home without services. to transport. CM to follow for d/c planning.
[2022-03-14] MEDS: cefTRIAXone sodium 1 GM in 0.9 % Sodium Chloride 50 ML IV (21:14)
[2022-03-14] MEDS: Azithromycin 500 MG in 0.9 % Sodium Chloride 250 ML 125 MG IV (22:33)
[2022-03-15] MEDS: Enoxaparin Sodium 40 MG/0.4 ML SYRINGE SUBCUT ×3 (01:05→23:26)
[2022-03-15 03:50] VITALS: BP 134/68; PULSE 65; RESP 14; TEMP 36.7; O2SAT 98
[2022-03-15] MEDS: Levothyroxine Sodium 125 MCG TABLET PO (05:35)
[2022-03-15 07:02] LABS: Anion Gap 12 (12-20); Blood Urea Nitrogen 23 mg/dL (9-16); Calcium 8.2 mg/dL (8.4-10.2); Carbon Dioxide 24 mmol/L (22-29); Chloride 111 mmol/L (96-108); Estimated Glomerular Filt Rate > 60; Glucose Random 93 mg/dL (60-115); Potassium 3.5 mmol/L (3.3-5.1); Sodium 143 mmol/L (135-145)
[2022-03-15 07:18] LABS: Hematocrit 27.1 % (37.0-47.0); Hemoglobin 9.4 g/dl (12.0-16.0); Mean Corpuscular HGB Conc 34.7 g/dl (31.0-35.0); Mean Corpuscular Hemoglobin 30.5 pg (27.0-33.0); Platelet Count 127 X10*3/uL (160-400); Red Blood Count 3.08 X10*6/uL (4.20-5.50); Red Cell Distribution Width 13.9 % (11.0-16.0); White Blood Count 15.1 X10*3/uL (4.8-10.8)
[2022-03-15 07:51] VITALS: BP 129/70; PULSE 51; RESP 20; TEMP 36.4; O2SAT 97
[2022-03-15] MEDS: 0.9 % Sodium Chloride Flush 3 ML SYRINGE IVFLUSH ×3 (08:57→23:13)
[2022-03-15] MEDS: FLUoxetine HCl 20 MG CAPSULE PO (08:57)
[2022-03-15 11:25] VITALS: BP 132/79; PULSE 53; RESP 20; TEMP 36.9; O2SAT 96
--- NOTE | 2022-03-15 12:01 | MHC.CM.PN ---
Per ROUNDS discussion, Patient is not yet medically cleared for dc (IV Azithromycin, IV Ceftriaxone); home is the goal and CM will continue to follow.
[2022-03-15] MEDS: Benzonatate 100 MG CAPSULE 200 MG PO (14:10)
--- NOTE | 2022-03-15 14:44 | P.PNIM_ITS ---
Subjective Subjective Date of Service: 03/15/22 Interval History: seen and examined this morning follow up for pneumonia, sepsis overall feeling better this morning. Still having dyspnea with exertion. Still with persistent cough, having trouble bringing up phlegm Review of Systems Review of Systems: Yes all other systems are reviewed and are negative Constitutional Constitutional: Denies chills and Denies fever(s) ENT Ears, Nose, Mouth, and Throat: Denies dizziness Cardiovascular Cardiovascular: Denies chest pain, Denies palpitations and Reports dyspnea on exertion Respiratory Respiratory: Reports cough and Reports dyspnea on exertion Gastrointestinal Gastrointestinal: Denies abdominal pain, Denies nausea and Denies vomiting Neurologic Neurologic: Denies dizziness Endocrine Endocrine: Denies palpitations Physical Exam Vital Signs: Vital Signs: Last Vital Signs Temp 98.5 F 03/15/22 11:25 Pulse 53 03/15/22 11:25 Resp 20 03/15/22 11:25 BP 132/79 03/15/22 11:25 Pulse Ox 96 03/15/22 11:25 O2 Del Method 03/15/22 11:25 O2 Flow Rate 1.5 03/15/22 11:25 BMI result Body Mass Index 35.2 Const: General: comfortable, alert and awake Nutritional Appearance: overw eight Orientation/consciousness: patient oriented x3 HEENT: Other: Right IJ present Resp: Other: crackles left base, otherwise clear lungs Effort & Inspection: normal respiratory effort, able to speak in complete sentences and not tachypneic Cardio: Rate: regular rate Heart sounds: S1 normal heart sound present and S2 normal heart sound present GI: Inspection: No distended Palpation (GI): Soft to palpation and nontender Neuro: General: patient oriented x3 and CN's II-XI intact bilaterally Extrem: Other: able to move all 4 extremities spontaneously Objective Data Active Medications Acetaminophen (Acetaminophen 325 Mg Tablet) 650 mg PO Q6H PRN PRN Reason: Pain, Mild (Pain Scale 1-3) Last Admin: 03/14/22 16:02 Dose: 650 mg Documented By: FATMATA Albuterol Sulfate (Albuterol Sulfate (0.083%) 2.5 Mg/3 Ml Vial.Neb) 2.5 mg INHALE Q4H PRN PRN Reason: Shortness of Breath Benzonatate (Benzonatate 100 Mg Capsule) 200 mg PO TID PRN PRN Reason: cough Last Admin: 03/15/22 14:10 Dose: 200 mg Documented By: JEMIMAEDLEK Enoxaparin Sodium (Enoxaparin Sodium 40 Mg/0.4 Ml Syringe) 40 mg SUBCUT Q24H [facility] Last Admin: 03/15/22 01:05 Dose: 40 mg Documented By: AGUSTIN Fluoxetine HCl (Fluoxetine Hcl 20 Mg Capsule) 20 mg PO DAILY [facility] Last Admin: 03/15/22 08:57 Dose: 20 mg Documented By: SHAAN Guaifenesin/Dextromethorphan (Guaifenesin Dm 600/30 1 Tab Tab.Er.12h) 1 tab PO BID [facility] Azithromycin 500 mg/ Sodium (Chloride) 250 mls @ 125 mls/hr IV Q24H [facility] Last Infusion: 03/15/22 01:48 Dose: 125 mls/hr Documented By: AGUSTIN Ceftriaxone Sodium 1 gm/ (Sodium Chloride) 50 mls @ 100 mls/hr IV Q24H [facility] Last Infusion: 03/14/22 22:43 Dose: 100 mls/hr Documented By: AGUSTIN Levothyroxine Sodium (Levothyroxine Sodium 125 Mcg Tablet) 125 mcg PO DAILY@0600 [facility] Last Admin: 03/15/22 05:35 Dose: 125 mcg Documented By: AGUSTIN Melatonin (Melatonin 3 Mg Tablet) 6 mg PO BEDTIME PRN PRN Reason: Insomnia Ondansetron HCl (Ondansetron Hcl 4 Mg/2 Ml Vial) 4 mg IVPUSH Q8H PRN PRN Reason: Nausea and Vomiting Pharmacy Consult (Consult Rx Perform Med Rec) 1 each MISCELLANE ONCE PRN PRN Reason: Consult order Sodium Chloride (0.9 % Sodium Chloride Flush 3 Ml Syringe) 3 ml IVFLUSH QSHIFT [facility] Last Admin: 03/15/22 08:57 Dose: 3 ml Documented By: SHAAN Labs CBC & Chem 7: 03/15/22 05:58 03/15/22 05:58 Labs: Laboratory Results - last 24 hr 03/15/22 03/15/22 05:58 05:58 MCV 88.0 MCH 30.5 MCHC 34.7 RDW 13.9 Plt Count 127 L MPV 12.0 Absolute Nucleated RBC 0.000 Nucleated RBC % (auto) 0.0 Anion Gap 12 Estim Creat Clear Calc 103.0 Estimated GFR > 60 Random Glucose 93 Calcium 8.2 L Microbiology Microbiology Results: Microbiology 03/13/22 21:05 Blood Culture - Preliminary Blood - Venous No growth after 24 hours. 03/13/22 20:36 Blood Culture - Preliminary Blood - Venous No growth after 24 hours. Assessment and Plan (1) Sepsis due to pneumonia: Status: Acute Plan This is a 66-year-old female with pertinent history of essential hypertension, hypothyroidism, mood disorder who presents to the emergency department for evaluation of dyspnea and productive cough. Septic shock secondary to community-acquired pneumonia CT chest showing LLL pneumonia. Covid/flu/RSV negative BP dropped night of admission despite adequate fluid resuscitation and required levophed drip, was able to be weaned off around 5am this morning. BP has remained stable thus far Lactic acid wnl blood cultures negative continue IV ceftriaxone, Azithromycin currently saturating on room air Essential hypertension -hold home norvasc, lisinopril for sepsis BP stable, follow and resume home meds as bp allows thrombocytopenia likely related to sepsis follow CBC Hypothyroidism -continue levothyroxine Mood disorder -continue fluoxetine DVT prophylaxis: Lovenox Full code Attending - Dr. Resendiz patient requires ongoing inpatient hospitalization for management of shock/ pneumonia, IV antibiotics Quality Stroke Does the patient have a stroke diagnosis?: No VTE Prior VTE?: No VTE Risk Level:: Medical - moderate - high VTE Device Contraindication: Treatment Not Indicated VTE Drug Contraindication: N/A - Med Ordered
[2022-03-15 15:30] VITALS: BP 131/79; PULSE 50; RESP 18; TEMP 36.7; O2SAT 97
[2022-03-15 19:23] VITALS: BP 147/67; PULSE 61; RESP 16; TEMP 36; O2SAT 94
[2022-03-15] MEDS: cefTRIAXone sodium 1 GM in 0.9 % Sodium Chloride 50 ML IV (21:50)
[2022-03-15] MEDS: guaiFENesin DM 600/30 1 TAB TAB.ER.12H PO (21:51)
[2022-03-15] MEDS: Azithromycin 500 MG in 0.9 % Sodium Chloride 250 ML 125 MG IV (23:12)
[2022-03-16] VITALS (8 sets, daily range): BP systolic 121–146; BP diastolic 59–85; PULSE 52–65; RESP 16–20; TEMP 36–36.4; O2SAT 94–98
[2022-03-16] MEDS: Levothyroxine Sodium 125 MCG TABLET PO (05:03)
--- NOTE | 2022-03-16 07:42 | PC.NURSE ---
Patient remains alert and oriented. Unable to collect stool sample for CDIFF due to not having any BM yet. Instructed on infection control to rule out cdiff. BP remains stable at this time.
[2022-03-16 08:06] LABS: Hematocrit 27.3 % (37.0-47.0); Hemoglobin 9.4 g/dl (12.0-16.0); Mean Corpuscular HGB Conc 34.4 g/dl (31.0-35.0); Mean Corpuscular Hemoglobin 30.4 pg (27.0-33.0); Mean Corpuscular Volume 88.3 fL (80.0-98.0); Mean Platelet Volume 12.1 fL (9.4-12.3); Platelet Count 139 X10*3/uL (160-400); Red Blood Count 3.09 X10*6/uL (4.20-5.50); Red Cell Distribution Width 13.5 % (11.0-16.0); White Blood Count 11.2 X10*3/uL (4.8-10.8)
[2022-03-16] MEDS: 0.9 % Sodium Chloride Flush 3 ML SYRINGE IVFLUSH ×2 (08:30→21:34)
[2022-03-16] MEDS: guaiFENesin DM 600/30 1 TAB TAB.ER.12H PO ×2 (08:31→20:29)
[2022-03-16] MEDS: FLUoxetine HCl 20 MG CAPSULE PO (08:31)
[2022-03-16] MEDS: Albuterol Sulfate (0.083%) 2.5 MG/3 ML VIAL.NEB INHALE ×2 (11:41→15:17)
--- NOTE | 2022-03-16 11:54 | HO.PM.IMPN ---
Subjective Subjective Date of Service: 03/16/22 Interval History: follow up for pneumonia, sepsis overall feeling better this morning. Still having dyspnea with exertion but better Still with persistent cough, having trouble bringing up phlegm Review of Systems Review of Systems: Yes all other systems are reviewed and are negative Constitutional Constitutional: Denies chills and Denies fever(s) ENT Ears, Nose, Mouth, and Throat: Denies dizziness Cardiovascular Cardiovascular: Denies chest pain, Denies palpitations and Reports dyspnea on exertion Respiratory Respiratory: Reports cough and Reports dyspnea on exertion Gastrointestinal Gastrointestinal: Denies abdominal pain, Denies nausea and Denies vomiting Neurologic Neurologic: Denies dizziness Endocrine Endocrine: Denies palpitations Physical Exam Vital Signs: Vital Signs: Last Vital Signs Temp 97.4 F 03/16/22 11:51 Pulse 61 03/16/22 11:51 Resp 16 03/16/22 11:51 BP 131/61 03/16/22 11:51 Pulse Ox 94 03/16/22 11:51 O2 Del Method 03/16/22 11:51 O2 Flow Rate 2 03/15/22 15:30 BMI result Body Mass Index 35.2 Appearing in no acute distress lung sounds are clear to auscultation heart regular rate rhythm, clear S1, S2 positive bowel sounds, abdomen is soft, nontender neuro patient is alert x3, no focal deficits Objective Data Active Medications Acetaminophen (Acetaminophen 325 Mg Tablet) 650 mg PO Q6H PRN PRN Reason: Pain, Mild (Pain Scale 1-3) Last Admin: 03/14/22 16:02 Dose: 650 mg Documented By: FATMATA Albuterol Sulfate (Albuterol Sulfate (0.083%) 2.5 Mg/3 Ml Vial.Neb) 2.5 mg INHALE Q4H PRN PRN Reason: Shortness of Breath Albuterol Sulfate (Albuterol Sulfate (0.083%) 2.5 Mg/3 Ml Vial.Neb) 2.5 mg INHALE RQ4H WHILE AWAKE MEET Last Admin: 03/16/22 11:41 Dose: 2.5 mg Documented By: KIMBERLEE Benzonatate (Benzonatate 100 Mg Capsule) 200 mg PO TID PRN PRN Reason: cough Last Admin: 03/15/22 14:10 Dose: 200 mg Documented By: BRIANDA Enoxaparin Sodium (Enoxaparin Sodium 40 Mg/0.4 Ml Syringe) 40 mg SUBCUT Q24H [facility] Last Admin: 03/15/22 23:13 Dose: 40 mg Documented By: ELIZABETH Fluoxetine HCl (Fluoxetine Hcl 20 Mg Capsule) 20 mg PO DAILY [facility] Last Admin: 03/16/22 08:31 Dose: 20 mg Documented By: CORAL Guaifenesin/Dextromethorphan (Guaifenesin Dm 600/30 1 Tab Tab.Er.12h) 1 tab PO BID [facility] Last Admin: 03/16/22 08:31 Dose: 1 tab Documented By: CORAL Azithromycin 500 mg/ Sodium (Chloride) 250 mls @ 125 mls/hr IV Q24H [facility] Last Infusion: 03/16/22 01:15 Dose: 0 mls/hr Documented By: ELIZABETH Ceftriaxone Sodium 1 gm/ (Sodium Chloride) 50 mls @ 100 mls/hr IV Q24H [facility] Last Infusion: 03/15/22 22:20 Dose: 0 mls/hr Documented By: ELIZABETH Levothyroxine Sodium (Levothyroxine Sodium 125 Mcg Tablet) 125 mcg PO DAILY@0600 [facility] Last Admin: 03/16/22 05:03 Dose: 125 mcg Documented By: ELIZABETH Melatonin (Melatonin 3 Mg Tablet) 6 mg PO BEDTIME PRN PRN Reason: Insomnia Ondansetron HCl (Ondansetron Hcl 4 Mg/2 Ml Vial) 4 mg IVPUSH Q8H PRN PRN Reason: Nausea and Vomiting Pharmacy Consult (Consult Rx Perform Med Rec) 1 each MISCELLANE ONCE PRN PRN Reason: Consult order Sodium Chloride (0.9 % Sodium Chloride Flush 3 Ml Syringe) 3 ml IVFLUSH QSHIFT [facility] Last Admin: 03/16/22 08:30 Dose: 3 ml Documented By: CORAL Labs CBC & Chem 7: 03/16/22 06:38 03/15/22 05:58 Labs: Laboratory Results - last 24 hr 03/16/22 06:38 MCV 88.3 MCH 30.4 MCHC 34.4 RDW 13.5 Plt Count 139 L MPV 12.1 Absolute Nucleated RBC 0.000 Nucleated RBC % (auto) 0.0 Microbiology Microbiology Results: Microbiology 03/13/22 21:05 Blood Culture - Preliminary Blood - Venous No growth after 48 hours. 03/13/22 20:36 Blood Culture - Preliminary Blood - Venous No growth after 48 hours. Assessment and Plan (1) Sepsis due to pneumonia: Status: Acute Plan This is a 66-year-old female with pertinent history of essential hypertension, hypothyroidism, mood disorder who presents to the emergency department for evaluation of dyspnea and productive cough. Septic shock secondary to community-acquired pneumonia CT chest showing LLL pneumonia. Covid/flu/RSV negative BP dropped night of admission despite adequate fluid resuscitation and required levophed drip, was able to be weaned off around 5am this morning. BP has remained stable thus far Lactic acid wnl blood cultures negative continue IV ceftriaxone, Azithromycin currently saturating on room air sched duonebs mucinex for dry cough Essential hypertension hold home norvasc, lisinopril for sepsis BP stable, follow and resume home meds as bp allows thrombocytopenia likely related to sepsis follow CBC Hypothyroidism continue levothyroxine Mood disorder continue fluoxetine DVT prophylaxis: Lovenox Full code Attending - Dr. Salcido patient requires ongoing inpatient hospitalization for management of shock/ pneumonia, IV antibiotics Quality Stroke Does the patient have a stroke diagnosis?: No VTE Prior VTE?: No VTE Risk Level:: Medical - moderate - high VTE Device Contraindication: Treatment Not Indicated VTE Drug Contraindication: N/A - Med Ordered
[2022-03-16] MEDS: Melatonin 3 MG TABLET 6 MG PO (20:29)
[2022-03-16] MEDS: cefTRIAXone sodium 1 GM in 0.9 % Sodium Chloride 50 ML IV (20:36)
[2022-03-16] MEDS: Azithromycin 500 MG in 0.9 % Sodium Chloride 250 ML 125 MG IV (22:48)
[2022-03-17] VITALS: BP 101/77; BP 140/64; PULSE 56; PULSE 68; RESP 20; TEMP 36.1; TEMP 36.2; O2SAT 96; O2SAT 98
[2022-03-17] MEDS: Enoxaparin Sodium 40 MG/0.4 ML SYRINGE SUBCUT (00:44)
[2022-03-17 03:13] VITALS: BP 139/64; PULSE 56; RESP 20; TEMP 35.9; O2SAT 95
[2022-03-17] MEDS: Levothyroxine Sodium 125 MCG TABLET PO (05:23)
[2022-03-17] MEDS: Benzonatate 100 MG CAPSULE 200 MG PO (05:25)
[2022-03-17 07:20] VITALS: BP 138/66; PULSE 65; RESP 17; TEMP 36.4; O2SAT 96
[2022-03-17] MEDS: 0.9 % Sodium Chloride Flush 3 ML SYRINGE IVFLUSH (09:02)
[2022-03-17] MEDS: guaiFENesin DM 600/30 1 TAB TAB.ER.12H PO (09:03)
[2022-03-17] MEDS: FLUoxetine HCl 20 MG CAPSULE PO (09:03)
[2022-03-17 11:27] VITALS: PULSE 62; RESP 18; O2SAT 97
[2022-03-17] MEDS: Albuterol Sulfate (0.083%) 2.5 MG/3 ML VIAL.NEB INHALE (11:27)
--- NOTE | 2022-03-17 11:39 | PM.DS ---
DS: Providers Provider Date of Service: 03/17/22 Date of admission: 03/13/22 23:36 Primary care physician: Unknown Physician [facility]ing clinician: Gila Bliss DS: Diagnosis Discharge Diagnosis (1) Sepsis due to pneumonia: Status: Acute DS: Summary Hospital Course Hospital Course: HP as per admitting provider This is a 66-year-old female with pertinent history of essential hypertension, hypothyroidism, mood disorder who presents to the emergency department for evaluation of dyspnea.? Patient states she had symptoms of upper respiratory infection including runny nose and watering of eyes for the last 3 weeks.? She saw her PCP who gave her a steroid pack and Tamiflu but that did not help her.? She tested multiple times for COVID and flu and was negative.? Subsequently patient developed productive cough with chills.? No documented temperature.? Also has associated generalized weakness and pleuritic chest discomfort.? Did have episodes of nausea and nonbloody emesis.? Denies palpitations, abdominal discomfort, changes in urinary or bowel habits.? Does have sick contact at home. In the ER, patient was found to be hypotensive and imaging was concerning for left-sided infiltrate. Patient had episode of hypotension after fluid resuscitation in the ER and was in need for pressors.? Spoke to ICU but was told there was no availability of nursing staff and hence they could not take the patient.? ED physician put in a central line and patient was started on Levophed.? It was successfully weaned off at 05:00 Septic shock secondary to community-acquired pneumonia. Resolved CT chest showing LLL pneumonia. Covid/flu/RSV negative BP dropped night of admission despite adequate fluid resuscitation and required levophed drip, was able to be weaned off around 5am this morning. BP has remained stable thus far Lactic acid wnl blood cultures negative Treated with IV ceftriaxone, Azithromycin, continue Ceftin and azithromycin for 4 more days for total of 7 day treatment Treated with sched duonepayton mucinex for dry cough Essential hypertension hold home norvasc, lisinopril for sepsis initally BP stable, Resume medications thrombocytopenia likely related to sepsis Hypothyroidism continue levothyroxine Mood disorder continue fluoxetine Time Spent with Patient Time attestation: Total time spent providing and/or coordinating discharge services: Discharge coordination time: Greater than 30 minutes Quality: Safe Use of Opioids Does Pt have an Active Cancer Diagnosis on the Problem List?: No Quality: Stroke Does the patient have a stroke diagnosis?: No Physical Exam Vital Signs: Vital Signs: Last Vital Signs Temp 97.5 F 03/17/22 07:20 Pulse 62 03/17/22 11:27 Resp 18 03/17/22 11:27 BP 138/66 03/17/22 07:20 Pulse Ox 96 03/17/22 07:20 O2 Del Method 03/17/22 07:20 O2 Flow Rate 2 03/15/22 15:30 BMI result Body Mass Index 35.2 Appearing in no acute distress head is normocephalic atraumatic eyes pupils are PERRLA sclera is anicteric mouth throat mucous membranes are intact and moist neck is supple no lymphadenopathy, no JVD noted lung sounds are clear to auscultation heart regular rate rhythm, clear S1, S2 positive bowel sounds, abdomen is soft, nontender neuro patient is alert x3, no focal deficits DS: Data Data Completed and Pending Labs on day of discharge: Preliminary micro results at discharge 03/13/22 21:05 Blood Culture - Preliminary Blood - Venous No growth after 48 hours. 03/13/22 20:36 Blood Culture - Preliminary Blood - Venous No growth after 48 hours. Discharge Plan Discharge Anticipated Discharge Date/Time: 03/17/22 11:14 Patient Disposition: Home, Self-Care Discharge Diagnosis: Septic shock secondary to pneumonia Referrals: Physician,Unknown J [Primary Care Provider] - 1 Week Discharge Medications: New azithromycin 500 mg tablet 500 mg PO DAILY Qty: 4 0RF cefuroxime axetil 500 mg tablet 500 mg PO BID Qty: 8 0RF Continued lisinopril 20 mg tablet 20 mg PO DAILY amlodipine 5 mg tablet 5 mg PO DAILY trazodone 100 mg tablet 100 mg PO BEDTIME levothyroxine 125 mcg tablet 125 mcg PO QAM nystatin-triamcinolone 100,000-0.1 unit/g-% cream 1 appl topical BID PRN (Reason: Rash) fluoxetine 20 mg capsule 20 mg PO BID oxycodone-acetaminophen 5-325 mg tablet 1 tab PO Q6-8H PRN (Reason: Pain) disulfiram 250 mg tablet 250 mg PO DAILY multivitamin Tablet 1 tab PO QAM cetirizine [Zyrtec] 10 mg Tablet 10 mg PO DAILY ergocalciferol (vitamin D2) 1,000 unit Capsule 1,000 unit PO DAILY oxymetazoline [Afrin (oxymetazoline)] 0.05 % [place],Non-Aerosol 2 spray INTRANASAL Q12H PRN (Reason: Nasal Congestion) Discontinued methylprednisolone 4 mg tablets,dose pack 4 mg PO DIRECTED Rx Instructions: take according to taper. last dose scheduled for 03/14/22 Discharge Orders: Discharge Order (Routine); Ordered 03/17/22 Ordered By: Gila Bliss Diet: Advance to usual diet Activity on Discharge: As tolerated Stand Alone Forms: Patient Portal Discharge page Care Plan Goals: Complete resolution of symptoms Health Concerns: Septic shock secondary to pneumonia Plan of Treatment: Follow-up with primary care as needed Take all medications as prescribed Assessment: See discharge summary Discharge Date/Time: 03/17/22 12:30
--- NOTE | 2022-03-17 11:44 | MHC.CM.PN ---
pt dcd home no skilled servceis orderd by
[2022-03-17 11:57] VITALS: BP 133/69; PULSE 68; RESP 17; TEMP 36.6; O2SAT 98
== END 2022-03-17 12:30 | disposition home or self-care (01) | DRG 871 ==
LOC: HO.ED 22:27 → HO.EDOVER 23:40 → HO.IMC 03-14 19:03
PROVIDERS: Physician Assistant Medical; Admitting Provider Student in an Organized Health Care Education/Training Program; Emergency Provider Emergency Medicine Emergency Medical Services; PCP Internal Medicine; Visit Provider Nurse Practitioner Acute Care
DX: A41.9 Sepsis, unspecified organism (principal); J18.9 Pneumonia, unspecified organism; R65.21 Severe sepsis with septic shock; D69.6 Thrombocytopenia, unspecified; F39 Unspecified mood [affective] disorder; I10 Essential (primary) hypertension; E03.9 Hypothyroidism, unspecified; Z20.822 Contact with and (suspected) exposure to COVID-19; Z88.0 Allergy status to penicillin; Z79.890 Hormone replacement therapy; Z79.899 Other long term (current) drug therapy
CPT/HCPCS: 0241U; 36415; 71045; 71275; 80048; 83605; 83880; 84484; 85025; 85027; 85379; 87040; 87635; 93005; 94640; 99285; J0456; J0696; J1100; J1650; J1885; P9047; Q9967

== ENCOUNTER 2022-06-11 13:52 | Emergency (ER) | payer MEDICARE, SELFPAY ==
[2022-06-11 13:59] VITALS: BP 150/83; PULSE 67; RESP 18; TEMP 36.8; O2SAT 97; BMI 34.2
--- NOTE | 2022-06-11 14:00 | ED_ITS ---
HPI - Psych General Chief Complaint: Psychiatric Symptoms <LUZ MARINA Levi - Last Filed: 06/11/22 14:04> Stated Complaint: Psych eval <LUZ MARINA Levi - Last Filed: 06/11/22 14:04> Time Seen by Provider: 06/11/22 14:35 <LUZ MARINA Levi - Last Filed: 06/11/22 14:04> Source: patient <Neha LeeTERRY jonas - Last Filed: 06/11/22 18:03> Mode of arrival: ambulatory <Neha Nieto TERRY Escobar - Last Filed: 06/11/22 18:03> Limitations: no limitations <Neha Emilia Escobar CNP - Last Filed: 06/11/22 18:03> History of Present Illness HPI Narrative: Patient is a 66-year-old female who presents to the emergency department for evaluation of depression in ETOH use. She states that over the past week she has increased her alcohol intake currently drinking 1/2 pt of rum per day, reports family stressors involving her mother. She has been having increasing depression along with this. She denies any suicidal or homicidal ideations. She denies any interest in detox, states that she is currently prescribed fluoxetine and Antabuse. She currently does not have a psychiatrist or therapist and is interested in having the services established. She has no physical complaints. <Neha Nieto TERRY Escobar - Last Filed: 06/11/22 18:03> Related Data Home Medications: Home Medications Medication Instructions Recorded Confirmed amlodipine 5 mg tablet 5 mg PO DAILY 03/14/22 03/14/22 cetirizine 10 mg tablet (Zyrtec) 10 mg PO DAILY 03/14/22 03/14/22 disulfiram 250 mg tablet 250 mg PO DAILY 03/14/22 03/14/22 ergocalciferol (vitamin D2) 1,000 1,000 unit PO DAILY 03/14/22 03/14/22 unit capsule fluoxetine 20 mg capsule 20 mg PO BID 03/14/22 03/14/22 levothyroxine 125 mcg tablet 125 mcg PO QAM 03/14/22 03/14/22 lisinopril 20 mg tablet 20 mg PO DAILY 03/14/22 03/14/22 multivitamin 1 tab PO QAM 03/14/22 03/14/22 nystatin-triamcinolone 100,000 1 appl topical BID PRN Rash 03/14/22 03/14/22 unit/g-0.1 % topical cream oxycodone-acetaminophen 5 mg-325 1 tab PO Q6-8H PRN Pain 03/14/22 03/14/22 mg tablet oxymetazoline 0.05 % nasal spray 2 spray intranasal Q12H PRN Nasal 03/14/22 03/14/22 (Afrin (oxymetazoline)) Congestion trazodone 100 mg tablet 100 mg PO BEDTIME 03/14/22 03/14/22 Previous Rx's Medication Instructions Recorded azithromycin 500 mg tablet 500 mg PO DAILY #4 tabs 03/17/22 cefuroxime axetil 500 mg tablet 500 mg PO BID #8 tabs 03/17/22 <LUZ MARINA Levi - Last Filed: 06/11/22 14:04> Allergies/Adverse Reactions: Allergies Allergy/AdvReac Type Severity Reaction Status Date / Time Penicillins [PENICILLINS] Allergy Intermediate HIVES Verified 03/13/22 19:53 adhesive [ADHESIVE] Allergy Mild SKIN COMES Verified 03/13/22 19:53 OFF WITH TAPE penicillin G Allergy Unknown hives Verified 03/13/22 19:53 <LUZ MARINA Levi - Last Filed: 06/11/22 14:04> Review of Systems Review of Systems: Constitutional : No Fever, No Chills ENT/Mouth : No Ear Pain, No Nasal Congestion, No sore throat Eyes: No Eye Pain, No Swelling, No Redness Cardiovascular : No Chest Pain, No SOB Respiratory : No Cough, No Sputum, No Dyspnea Gastrointestinal : No Nausea, No Vomiting, No Diarrhea, No Hematochezia, No Melena Genitourinary : No Dysuria, No Urinary Frequency, No Hematuria Musculoskeletal : No Myalgias Skin : No Skin Lesions, No rash Neuro : No Weakness, No Numbness, No Paresthesias, No Dizziness, No Headache Psych : positive Anxiety, positive Depression, no SI/HI Heme/Lymph: No Lymphadenopathy Endocrine : No Polyuria, No Polydipsia <Neha Escobar CNP - Last Filed: 06/11/22 18:03> Yes all other systems are reviewed and are negative <TERRY Alejo Last Filed: 06/11/22 18:03> [facility] Past Medical History Attestation statement: The following information was validated with the patient. <Neha Escobar CNP - Last Filed: 06/11/22 18:03> Source: old records reviewed <Neha Escobar CNP - Last Filed: 06/11/22 18:03> Medical History: Medical History Hypertension Hypothyroid Mood disorder <LUZ MARINA Levi - Last Filed: 06/11/22 14:04> Social History Social History: Social History Household Members: Spouse Alcohol intake: current Alcohol intake frequency: a few times a month Patient Tobacco Use Status: Never used Tobacco Advance Directives: No Advance Directives Information Provided: Yes service: No Current occupational status: employed <LUZ MARINA Levi - Last Filed: 06/11/22 14:04> Physical Exam Vital Signs: Vital Signs: Last Vital Signs Temp 98.2 F 06/11/22 13:59 Pulse 67 06/11/22 13:59 Resp 18 06/11/22 13:59 BP 150/83 H 06/11/22 13:59 Pulse Ox 97 06/11/22 13:59 O2 Del Method 06/11/22 13:59 BMI result Body Mass Index 34.2 <LUZ MARINA Levi - Last Filed: 06/11/22 14:04> Vital Signs: Last Vital Signs Temp 98.2 F 06/11/22 13:59 Pulse 67 06/11/22 13:59 Resp 18 06/11/22 13:59 BP 150/83 H 06/11/22 13:59 Pulse Ox 97 06/11/22 13:59 O2 Del Method 06/11/22 13:59 BMI result Body Mass Index 34.2 <Neha Escobar CNP - Last Filed: 06/11/22 18:03> Appearance: Alert.?Oriented to person, place and time. No acute distress.?Normal affect. Eyes: Pupils equal, round and reactive to light.? ENT: Pharynx normal.?? Neck: Normal inspection.? Neck supple.?? CVS: Heart sounds normal. Normal heart rate and rhythm.? Pulses normal.?? Respiratory: No respiratory distress.? Lung sounds clear to auscultation bilaterally?? Abdomen: Soft and non-tender. Normoactive bowel sounds. ?? Skin: Skin warm and dry.? Normal skin color.? Extremities: No lower extremity edema.? Neuro: Moves all extremities spontaneously. Sensation intact bilaterally. CN II- XII intact. No focal neuro deficits. Ambulates with normal steady gait. <Neha Escobar CNP - Last Filed: 06/11/22 18:03> Course Course Course Narrative: RME - 66 yo female with history of alcoholism, depression, hypothyroidism, HTN who presents for evaluation of a mental health crisis. She reports worsening depression and daily ETOH, 1/2 pint rum per day. No SI or HI. Compliant with fluoxatine and antabuse but reports it doesn't work. No psychiatrist or therapist currently. Will get medical clearance labs, ETOH level, Utox and have her seen by the CARE team. <LUZ MARINA Levi - Last Filed: 06/11/22 14:04> Reevaluation(s) Reevaluation #1: Labs are overall unremarkable. Patient was evaluated by care team, referred to [facility] for assistance with psychiatrist/therapist. At this time she is stable for discharge. Her is present at bedside who also feels comfortable with patient returning home. She is agreeable with plan of care. All questions answered. <Neha Escobar CNP - Last Filed: 06/11/22 18:03> Medical Decision Making Medical Decision Making MDM Narrative: Patient is a 66-year-old female with past medical history of hypertension, hypothyroidism, mood disorder presenting to emergency department with increasing depression, increased alcohol use over the past week, requesting assistance with a stab listing psychiatrist/therapist in the community. She denies any suicidal or homicidal ideations, denies any hallucinations. She has increased stressors in the home. She has no physical complaints at this time, and physical examination is benign. Vital signs overall within normal limits, she is however hypertensive, though asymptomatic. <Neha Escobar CNP - Last Filed: 06/11/22 18:03> Admission/Observation Consideration of admission/observation: Escalation of care including admission/observation considered <Neha Nieto TERRY Escobar - Last Filed: 06/11/22 18:03> Lab Data MDM Lab Attestation statement: I reviewed the patient's lab results. <Neha Nieto TERRY Escobar - Last Filed: 06/11/22 18:03> Result Diagrams: 06/11/22 14:49 06/11/22 14:49 <LUZ MARINA Levi - Last Filed: 06/11/22 14:04> Labs: Lab Results 06/11/22 06/11/22 06/11/22 Range/Units 14:47 14:47 14:48 WBC (4.8-10.8) X10*3/uL RBC (4.20-5.50) X10*6/uL Hgb (12.0-16.0) g/dl Hct (37.0-47.0) % MCV (80.0-98.0) fL MCH (27.0-33.0) pg MCHC (31.0-35.0) g/dl RDW (11.0-16.0) % Plt Count (160-400) X10*3/uL MPV (9.4-12.3) fL Immature Gran % (Auto) (0.0-0.4) % Neut % (Auto) (45-73) % Lymph % (Auto) (20-40) % [place] % (Auto) (2-11) % Eos % (Auto) (0-4) % Baso % (Auto) (0-2) % Lymph # (Auto) (1.2-4.9) X10*3/uL [place] # (Auto) (0.1-1.2) X10*3/uL Eos # (Auto) (0.0-0.4) X10*3/uL Baso # (Auto) (0.0-0.2) X10*3/uL Abs Immat Gran (auto) (0.00-0.03) X10*3/uL Absolute Neuts (auto) (2.0-8.3) x10*3/uL Absolute Nucleated RBC (0.0-0.012) X10*3/uL Nucleated RBC % (auto) (0.0-0.2) /100WBC Sodium (135-145) mmol/L Potassium (3.3-5.1) mmol/L Chloride (96-108) mmol/L Carbon Dioxide (22-29) mmol/L Anion Gap (12-20) BUN (9-16) mg/dL Creatinine (0.5-1.4) mg/dL Estim Creat Clear Calc Estimated GFR Random Glucose (60-115) mg/dL Calcium (8.4-10.2) mg/dL Magnesium (1.6-2.6) mg/dL Total Bilirubin (0.0-1.0) mg/dL Direct Bilirubin (0.0-0.5) mg/dL AST (5-31) U/L ALT (0-31) U/L Alkaline Phosphatase (39-117) U/L Total Protein (6.5-8.0) g/dL Albumin (3.5-5.0) g/dL TSH (0.32-4.0) uIU/mL Urine Color Yellow Urine Appearance Clear Urine pH 5.0 (5.0-9.0) Ur Specific [place] 1.020 (1.005-1.025) Urine Protein Negative (Neg-Trace) mg/dL Urine Glucose (UA) Negative (Negative) mg/dL Urine Ketones Negative (Negative) mg/dL Urine Blood Negative (Negative) Urine Nitrite Negative (Negative) Ur Leukocyte Esterase Trace H (Negative) Urine RBC 0-2 (0-2) /HPF Urine WBC 0-5 (0-5) /HPF Ur Squamous Epith Cells >20 (0-2) /HPF Urine Bacteria 1+ (None Seen) Hyaline Casts 0-2 (0-2) /LPF Urine Opiates Screen Not Detected (Not Detect) Urine Fentanyl Screen Not Detected (Not Detect) Ur Barbiturates Screen Not Detected (Not Detect) Ur Phencyclidine Scrn Not Detected (Not Detect) Ur Amphetamines Screen Not Detected (Not Detect) U Benzodiazepines Scrn Not Detected (Not Detect) Urine Cocaine Screen Not Detected (Not Detect) U Marijuana (THC) Screen Not Detected (Not Detect) Ethyl Alcohol mg/dL COVID-19 ([facility]UCE) Negative (Negative) COVID-19 Clin Com See Note 06/11/22 06/11/22 06/11/22 Range/Units 14:49 14:49 14:49 WBC 6.2 (4.8-10.8) X10*3/uL RBC 4.00 L D (4.20-5.50) X10*6/uL Hgb 13.3 D (12.0-16.0) g/dl Hct 36.2 L D (37.0-47.0) % MCV 90.5 (80.0-98.0) fL MCH 33.3 H (27.0-33.0) pg MCHC 36.7 H (31.0-35.0) g/dl RDW 14.9 (11.0-16.0) % Plt Count 226 D (160-400) X10*3/uL MPV 11.1 (9.4-12.3) fL Immature Gran % (Auto) 0.2 (0.0-0.4) % Neut % (Auto) 65.8 (45-73) % Lymph % (Auto) 26.3 (20-40) % [place] % (Auto) 6.1 (2-11) % Eos % (Auto) 0.5 (0-4) % Baso % (Auto) 1.1 (0-2) % Lymph # (Auto) 1.6 (1.2-4.9) X10*3/uL [place] # (Auto) 0.4 (0.1-1.2) X10*3/uL Eos # (Auto) 0.0 (0.0-0.4) X10*3/uL Baso # (Auto) 0.1 (0.0-0.2) X10*3/uL Abs Immat Gran (auto) 0.01 (0.00-0.03) X10*3/uL Absolute Neuts (auto) 4.1 (2.0-8.3) x10*3/uL Absolute Nucleated RBC 0.000 (0.0-0.012) X10*3/uL Nucleated RBC % (auto) 0.0 (0.0-0.2) /100WBC Sodium 144 (135-145) mmol/L Potassium 4.2 (3.3-5.1) mmol/L Chloride 108 (96-108) mmol/L Carbon Dioxide 22 (22-29) mmol/L Anion Gap 18 (12-20) BUN 13 (9-16) mg/dL Creatinine 0.75 (0.5-1.4) mg/dL Estim Creat Clear Calc 91.0 Estimated GFR > 60 Random Glucose 81 (60-115) mg/dL Calcium 9.0 D (8.4-10.2) mg/dL Magnesium 1.8 (1.6-2.6) mg/dL Total Bilirubin 0.9 (0.0-1.0) mg/dL Direct Bilirubin 0.3 (0.0-0.5) mg/dL AST 16 (5-31) U/L ALT 7 (0-31) U/L Alkaline Phosphatase 85 (39-117) U/L Total Protein 6.7 (6.5-8.0) g/dL Albumin 4.1 (3.5-5.0) g/dL TSH (0.32-4.0) uIU/mL Urine Color Urine Appearance Urine pH (5.0-9.0) Ur Specific [place] (1.005-1.025) Urine Protein (Neg-Trace) mg/dL Urine Glucose (UA) (Negative) mg/dL Urine Ketones (Negative) mg/dL Urine Blood (Negative) Urine Nitrite (Negative) Ur Leukocyte Esterase (Negative) Urine RBC (0-2) /HPF Urine WBC (0-5) /HPF Ur Squamous Epith Cells (0-2) /HPF Urine Bacteria (None Seen) Hyaline Casts (0-2) /LPF Urine Opiates Screen (Not Detect) Urine Fentanyl Screen (Not Detect) Ur Barbiturates Screen (Not Detect) Ur Phencyclidine Scrn (Not Detect) Ur Amphetamines Screen (Not Detect) U Benzodiazepines Scrn (Not Detect) Urine Cocaine Screen (Not Detect) U Marijuana (THC) Screen (Not Detect) Ethyl Alcohol 58 mg/dL COVID-19 (BRUCE) (Negative) COVID-19 Clin Com 06/11/22 Range/Units 14:49 WBC (4.8-10.8) X10*3/uL RBC (4.20-5.50) X10*6/uL Hgb (12.0-16.0) g/dl Hct (37.0-47.0) % MCV (80.0-98.0) fL MCH (27.0-33.0) pg MCHC (31.0-35.0) g/dl RDW (11.0-16.0) % Plt Count (160-400) X10*3/uL MPV (9.4-12.3) fL Immature Gran % (Auto) (0.0-0.4) % Neut % (Auto) (45-73) % Lymph % (Auto) (20-40) % [place] % (Auto) (2-11) % Eos % (Auto) (0-4) % Baso % (Auto) (0-2) % Lymph # (Auto) (1.2-4.9) X10*3/uL [place] # (Auto) (0.1-1.2) X10*3/uL Eos # (Auto) (0.0-0.4) X10*3/uL Baso # (Auto) (0.0-0.2) X10*3/uL Abs Immat Gran (auto) (0.00-0.03) X10*3/uL Absolute Neuts (auto) (2.0-8.3) x10*3/uL Absolute Nucleated RBC (0.0-0.012) X10*3/uL Nucleated RBC % (auto) (0.0-0.2) /100WBC Sodium (135-145) mmol/L Potassium (3.3-5.1) mmol/L Chloride (96-108) mmol/L Carbon Dioxide (22-29) mmol/L Anion Gap (12-20) BUN (9-16) mg/dL Creatinine (0.5-1.4) mg/dL Estim Creat Clear Calc Estimated GFR Random Glucose (60-115) mg/dL Calcium (8.4-10.2) mg/dL Magnesium (1.6-2.6) mg/dL Total Bilirubin (0.0-1.0) mg/dL Direct Bilirubin (0.0-0.5) mg/dL AST (5-31) U/L ALT (0-31) U/L Alkaline Phosphatase (39-117) U/L Total Protein (6.5-8.0) g/dL Albumin (3.5-5.0) g/dL TSH 0.79 (0.32-4.0) uIU/mL Urine Color Urine Appearance Urine pH (5.0-9.0) Ur Specific [place] (1.005-1.025) Urine Protein (Neg-Trace) mg/dL Urine Glucose (UA) (Negative) mg/dL Urine Ketones (Negative) mg/dL Urine Blood (Negative) Urine Nitrite (Negative) Ur Leukocyte Esterase (Negative) Urine RBC (0-2) /HPF Urine WBC (0-5) /HPF Ur Squamous Epith Cells (0-2) /HPF Urine Bacteria (None Seen) Hyaline Casts (0-2) /LPF Urine Opiates Screen (Not Detect) Urine Fentanyl Screen (Not Detect) Ur Barbiturates Screen (Not Detect) Ur Phencyclidine Scrn (Not Detect) Ur Amphetamines Screen (Not Detect) U Benzodiazepines Scrn (Not Detect) Urine Cocaine Screen (Not Detect) U Marijuana (THC) Screen (Not Detect) Ethyl Alcohol mg/dL COVID-19 (BRUCE) (Negative) COVID-19 Clin Com <LUZ MARINA Levi - Last Filed: 06/11/22 14:04> Lab Results 06/11/22 06/11/22 06/11/22 Range/Units 14:47 14:47 14:48 WBC (4.8-10.8) X10*3/uL RBC (4.20-5.50) X10*6/uL Hgb (12.0-16.0) g/dl Hct (37.0-47.0) % MCV (80.0-98.0) fL MCH (27.0-33.0) pg MCHC (31.0-35.0) g/dl RDW (11.0-16.0) % Plt Count (160-400) X10*3/uL MPV (9.4-12.3) fL Immature Gran % (Auto) (0.0-0.4) % Neut % (Auto) (45-73) % Lymph % (Auto) (20-40) % [place] % (Auto) (2-11) % Eos % (Auto) (0-4) % Baso % (Auto) (0-2) % Lymph # (Auto) (1.2-4.9) X10*3/uL [place] # (Auto) (0.1-1.2) X10*3/uL Eos # (Auto) (0.0-0.4) X10*3/uL Baso # (Auto) (0.0-0.2) X10*3/uL Abs Immat Gran (auto) (0.00-0.03) X10*3/uL Absolute Neuts (auto) (2.0-8.3) x10*3/uL Absolute Nucleated RBC (0.0-0.012) X10*3/uL Nucleated RBC % (auto) (0.0-0.2) /100WBC Sodium (135-145) mmol/L Potassium (3.3-5.1) mmol/L Chloride (96-108) mmol/L Carbon Dioxide (22-29) mmol/L Anion Gap (12-20) BUN (9-16) mg/dL Creatinine (0.5-1.4) mg/dL Estim Creat Clear Calc Estimated GFR Random Glucose (60-115) mg/dL Calcium (8.4-10.2) mg/dL Magnesium (1.6-2.6) mg/dL Total Bilirubin (0.0-1.0) mg/dL Direct Bilirubin (0.0-0.5) mg/dL AST (5-31) U/L ALT (0-31) U/L Alkaline Phosphatase (39-117) U/L Total Protein (6.5-8.0) g/dL Albumin (3.5-5.0) g/dL TSH (0.32-4.0) uIU/mL Urine Color Yellow Urine Appearance Clear Urine pH 5.0 (5.0-9.0) Ur Specific [place] 1.020 (1.005-1.025) Urine Protein Negative (Neg-Trace) mg/dL Urine Glucose (UA) Negative (Negative) mg/dL Urine Ketones Negative (Negative) mg/dL Urine Blood Negative (Negative) Urine Nitrite Negative (Negative) Ur Leukocyte Esterase Trace H (Negative) Urine RBC 0-2 (0-2) /HPF Urine WBC 0-5 (0-5) /HPF Ur Squamous Epith Cells >20 (0-2) /HPF Urine Bacteria 1+ (None Seen) Hyaline Casts 0-2 (0-2) /LPF Urine Opiates Screen Not Detected (Not Detect) Urine Fentanyl Screen Not Detected (Not Detect) Ur Barbiturates Screen Not Detected (Not Detect) Ur Phencyclidine Scrn Not Detected (Not Detect) Ur Amphetamines Screen Not Detected (Not Detect) U Benzodiazepines Scrn Not Detected (Not Detect) Urine Cocaine Screen Not Detected (Not Detect) U Marijuana (THC) Screen Not Detected (Not Detect) Ethyl Alcohol mg/dL COVID-19 ([facility]) Negative (Negative) COVID-19 Clin Com See Note 06/11/22 06/11/22 06/11/22 Range/Units 14:49 14:49 14:49 WBC 6.2 (4.8-10.8) X10*3/uL RBC 4.00 L D (4.20-5.50) X10*6/uL Hgb 13.3 D (12.0-16.0) g/dl Hct 36.2 L D (37.0-47.0) % MCV 90.5 (80.0-98.0) fL MCH 33.3 H (27.0-33.0) pg MCHC 36.7 H (31.0-35.0) g/dl RDW 14.9 (11.0-16.0) % Plt Count 226 D (160-400) X10*3/uL MPV 11.1 (9.4-12.3) fL Immature Gran % (Auto) 0.2 (0.0-0.4) % Neut % (Auto) 65.8 (45-73) % Lymph % (Auto) 26.3 (20-40) % [place] % (Auto) 6.1 (2-11) % Eos % (Auto) 0.5 (0-4) % Baso % (Auto) 1.1 (0-2) % Lymph # (Auto) 1.6 (1.2-4.9) X10*3/uL [place] # (Auto) 0.4 (0.1-1.2) X10*3/uL Eos # (Auto) 0.0 (0.0-0.4) X10*3/uL Baso # (Auto) 0.1 (0.0-0.2) X10*3/uL Abs Immat Gran (auto) 0.01 (0.00-0.03) X10*3/uL Absolute Neuts (auto) 4.1 (2.0-8.3) x10*3/uL Absolute Nucleated RBC 0.000 (0.0-0.012) X10*3/uL Nucleated RBC % (auto) 0.0 (0.0-0.2) /100WBC Sodium 144 (135-145) mmol/L Potassium 4.2 (3.3-5.1) mmol/L Chloride 108 (96-108) mmol/L Carbon Dioxide 22 (22-29) mmol/L Anion Gap 18 (12-20) BUN 13 (9-16) mg/dL Creatinine 0.75 (0.5-1.4) mg/dL Estim Creat Clear Calc 91.0 Estimated GFR > 60 Random Glucose 81 (60-115) mg/dL Calcium 9.0 D (8.4-10.2) mg/dL Magnesium 1.8 (1.6-2.6) mg/dL Total Bilirubin 0.9 (0.0-1.0) mg/dL Direct Bilirubin 0.3 (0.0-0.5) mg/dL AST 16 (5-31) U/L ALT 7 (0-31) U/L Alkaline Phosphatase 85 (39-117) U/L Total Protein 6.7 (6.5-8.0) g/dL Albumin 4.1 (3.5-5.0) g/dL TSH (0.32-4.0) uIU/mL Urine Color Urine Appearance Urine pH (5.0-9.0) Ur Specific [place] (1.005-1.025) Urine Protein (Neg-Trace) mg/dL Urine Glucose (UA) (Negative) mg/dL Urine Ketones (Negative) mg/dL Urine Blood (Negative) Urine Nitrite (Negative) Ur Leukocyte Esterase (Negative) Urine RBC (0-2) /HPF Urine WBC (0-5) /HPF Ur Squamous Epith Cells (0-2) /HPF Urine Bacteria (None Seen) Hyaline Casts (0-2) /LPF Urine Opiates Screen (Not Detect) Urine Fentanyl Screen (Not Detect) Ur Barbiturates Screen (Not Detect) Ur Phencyclidine Scrn (Not Detect) Ur Amphetamines Screen (Not Detect) U Benzodiazepines Scrn (Not Detect) Urine Cocaine Screen (Not Detect) U Marijuana (THC) Screen (Not Detect) Ethyl Alcohol 58 mg/dL COVID-19 ([facility]) (Negative) COVID-19 Clin Com 06/11/22 Range/Units 14:49 WBC (4.8-10.8) X10*3/uL RBC (4.20-5.50) X10*6/uL Hgb (12.0-16.0) g/dl Hct (37.0-47.0) % MCV (80.0-98.0) fL MCH (27.0-33.0) pg MCHC (31.0-35.0) g/dl RDW (11.0-16.0) % Plt Count (160-400) X10*3/uL MPV (9.4-12.3) fL Immature Gran % (Auto) (0.0-0.4) % Neut % (Auto) (45-73) % Lymph % (Auto) (20-40) % [place] % (Auto) (2-11) % Eos % (Auto) (0-4) % Baso % (Auto) (0-2) % Lymph # (Auto) (1.2-4.9) X10*3/uL [place] # (Auto) (0.1-1.2) X10*3/uL Eos # (Auto) (0.0-0.4) X10*3/uL Baso # (Auto) (0.0-0.2) X10*3/uL Abs Immat Gran (auto) (0.00-0.03) X10*3/uL Absolute Neuts (auto) (2.0-8.3) x10*3/uL Absolute Nucleated RBC (0.0-0.012) X10*3/uL Nucleated RBC % (auto) (0.0-0.2) /100WBC Sodium (135-145) mmol/L Potassium (3.3-5.1) mmol/L Chloride (96-108) mmol/L Carbon Dioxide (22-29) mmol/L Anion Gap (12-20) BUN (9-16) mg/dL Creatinine (0.5-1.4) mg/dL Estim Creat Clear Calc Estimated GFR Random Glucose (60-115) mg/dL Calcium (8.4-10.2) mg/dL Magnesium (1.6-2.6) mg/dL Total Bilirubin (0.0-1.0) mg/dL Direct Bilirubin (0.0-0.5) mg/dL AST (5-31) U/L ALT (0-31) U/L Alkaline Phosphatase (39-117) U/L Total Protein (6.5-8.0) g/dL Albumin (3.5-5.0) g/dL TSH 0.79 (0.32-4.0) uIU/mL Urine Color Urine Appearance Urine pH (5.0-9.0) Ur Specific [place] (1.005-1.025) Urine Protein (Neg-Trace) mg/dL Urine Glucose (UA) (Negative) mg/dL Urine Ketones (Negative) mg/dL Urine Blood (Negative) Urine Nitrite (Negative) Ur Leukocyte Esterase (Negative) Urine RBC (0-2) /HPF Urine WBC (0-5) /HPF Ur Squamous Epith Cells (0-2) /HPF Urine Bacteria (None Seen) Hyaline Casts (0-2) /LPF Urine Opiates Screen (Not Detect) Urine Fentanyl Screen (Not Detect) Ur Barbiturates Screen (Not Detect) Ur Phencyclidine Scrn (Not Detect) Ur Amphetamines Screen (Not Detect) U Benzodiazepines Scrn (Not Detect) Urine Cocaine Screen (Not Detect) U Marijuana (THC) Screen (Not Detect) Ethyl Alcohol mg/dL COVID-19 ([facility]) (Negative) COVID-19 Clin Com <Neha Escobar CNP - Last Filed: 06/11/22 18:03> Discharge Plan Discharge Clinical Impression: Depression <LUZ MARINA Levi - Last Filed: 06/11/22 14:04> Patient Disposition: Home, Self-Care <LUZ MARINA Levi - Last Filed: 06/11/22 14:04> Instructions: Depression (ED), At-Risk Alcohol Use (ED) <LUZ MARINA Levi - Last Filed: 06/11/22 14:04> Additional Instructions: You were referred to [facility] for assistance with a psychiatrist/therapist. You may return at any time to the emergency department any new or worsening symptoms or concerns. <LUZ MARINA Levi - Last Filed: 06/11/22 14:04> Prescriptions: No Action lisinopril 20 mg tablet 20 mg PO DAILY amlodipine 5 mg tablet 5 mg PO DAILY trazodone 100 mg tablet 100 mg PO BEDTIME levothyroxine 125 mcg tablet 125 mcg PO QAM nystatin-triamcinolone 100,000-0.1 unit/g-% cream 1 appl topical BID PRN (Reason: Rash) fluoxetine 20 mg capsule 20 mg PO BID oxycodone-acetaminophen 5-325 mg tablet 1 tab PO Q6-8H PRN (Reason: Pain) disulfiram 250 mg tablet 250 mg PO DAILY multivitamin Tablet 1 tab PO QAM cetirizine [Zyrtec] 10 mg Tablet 10 mg PO DAILY ergocalciferol (vitamin D2) 1,000 unit Capsule 1,000 unit PO DAILY oxymetazoline [Afrin (oxymetazoline)] 0.05 % [place],Non-Aerosol 2 spray INTRANASAL Q12H PRN (Reason: Nasal Congestion) azithromycin 500 mg tablet 500 mg PO DAILY Qty: 4 0RF cefuroxime axetil 500 mg tablet 500 mg PO BID Qty: 8 0RF <LUZ MARINA Levi - Last Filed: 06/11/22 14:04> Referrals: Miesha Wiseman MD [Primary Care Provider] - <LUZ MARINA Levi - Last Filed: 06/11/22 14:04> Interventions: ED Discharge Assessment Last Done: 06/11/22 17:41 <LUZ MARINA Levi - Last Filed: 06/11/22 14:04> Discharge Date/Time: 06/11/22 17:52 <LUZ MARINA Levi - Last Filed: 06/11/22 14:04>
[2022-06-11 14:54] LABS: MANUAL DIFF FLAG NO
[2022-06-11 15:01] LABS: Basophils Absolute Auto 0.1 X10*3/uL (0.0-0.2); Basophils Percent Auto 1.1 % (0-2); Eosinophils Percent Auto 0.5 % (0-4); Hematocrit 36.2 % (37.0-47.0); Hemoglobin 13.3 g/dl (12.0-16.0); Imm Gran Abs Auto 0.01 X10*3/uL (0.00-0.03); Imm Gran Pct Auto 0.2 % (0.0-0.4); Lymphocytes Absolute Auto 1.6 X10*3/uL (1.2-4.9); Lymphocytes Percent Auto 26.3 % (20-40); Mean Corpuscular HGB Conc 36.7 g/dl (31.0-35.0); Mean Corpuscular Hemoglobin 33.3 pg (27.0-33.0); Mean Corpuscular Volume 90.5 fL (80.0-98.0); Mean Platelet Volume 11.1 fL (9.4-12.3); Monocytes Absolute Auto 0.4 X10*3/uL (0.1-1.2); Monocytes Percent Auto 6.1 % (2-11); Neutrophils Absolute Auto 4.1 x10*3/uL (2.0-8.3); Neutrophils Percent Auto 65.8 % (45-73); Platelet Count 226 X10*3/uL (160-400); Red Cell Distribution Width 14.9 % (11.0-16.0); White Blood Count 6.2 X10*3/uL (4.8-10.8)
[2022-06-11 15:08] LABS: COVID-19 Test Negative (Negative); IDNOW Serial# 16C4AD1C
[2022-06-11 15:16] LABS: Appearance Urine Clear; Color Urine Yellow; Glucose Urine UA Negative (Negative); Leukocyte Esterase Urine Trace (Negative); Nitrite Urine Negative (Negative); UMIC TRIGGER UACC YES; Urine Blood Negative (Negative); Urine Ketones Negative (Negative); Urine Protein Negative (Neg-Trace)
[2022-06-11 15:18] LABS: Bacteria Urine 1+ (None Seen); Hyaline Casts Urine 0-2 /LPF (0-2); RBC Urine 0-2 /HPF (0-2); Squamous Epithelial Cell Urine >20 /HPF (0-2); WBC Urine 0-5 /HPF (0-5)
[2022-06-11 15:19] LABS: Amphetamine Screen Urine Not Detected (Not Detect); Barbiturates, Urine Not Detected (Not Detect); Benzodiazepines Screen Urine Not Detected (Not Detect); Cannabinoid Screen Urine Not Detected (Not Detect); Cocaine Screen Urine Not Detected (Not Detect); Fentanyl, urine Not Detected (Not Detect); Opiate Screen Urine Not Detected (Not Detect); Phencyclidine Screen Urine Not Detected (Not Detect)
[2022-06-11 15:25] LABS: Ethanol 58 mg/dL
[2022-06-11 15:27] LABS: Alanine Aminotransferase 7 U/L (0-31); Albumin Level 4.1 g/dL (3.5-5.0); Alkaline Phosphatase 85 U/L (39-117); Anion Gap 18 (12-20); Aspartate Amino Transferase 16 U/L (5-31); Bilirubin Direct 0.3 mg/dL (0.0-0.5); Bilirubin Total 0.9 mg/dL (0.0-1.0); Blood Urea Nitrogen 13 mg/dL (9-16); Carbon Dioxide 22 mmol/L (22-29); Chloride 108 mmol/L (96-108); Estimated Glomerular Filt Rate > 60; Glucose Random 81 mg/dL (60-115); Magnesium 1.8 mg/dL (1.6-2.6); Potassium 4.2 mmol/L (3.3-5.1); Sodium 144 mmol/L (135-145); Total Protein 6.7 g/dL (6.5-8.0)
[2022-06-11 16:23] LABS: TSH reflex Free T4 0.79 uIU/mL (0.32-4.0)
--- NOTE | 2022-06-11 17:47 | MHC.CARE ---
Pt is a 66 year old Tajik speaking female who presents to the ED with increased depression along with alcohol use the past week. Pt's is with pt and reports family issues surrounding the pt, one which includes her mother falling and breaking her pelvis alongside Alzheimer's Disease. Pt reports having only a PCP and no outside supports and states she and her came in to get help in obtaining those supports. CARE Team meets with pt and spouse in [facility] in order to assess current needs and provide resources. Pt is alert and oriented X4, grooming is WNL. Pt eye contact is WNL and speech is clear and soft tone. Pt reports no appetite or sleeping disturbances. Pt reports starting to drink past week coinciding with increased depression. Pt denies any current SI/HI/AVH and states I would never think about doing that, I just want help. Symptoms of depression include increased alcohol use, anhedonia, lack of motivation and decrease in positive emotions. Pt has a hx of alcohol use disorder and is taking antibuse, but has been drinking this last week. Pt also hax a hx of depression and is prescribed an SSRI by her PCP. Pt is currently at low risk. Pt is help-seeking and wants to be connected with outside supports. She reports wanting a therapist and psychiatry supports and said she came to the ED with her to get the process started. Pt denies SI/HI/AVH and denies any thoughts of self-harm. Plan is for pt to be discharged with resource booklets along with referral to [facility]. Pt is also educated about [facility] which can be utilized as an access point for resources in the future. This plan is discussed with and agreed upon with Hilaria Singh [facility] and ED provider Neha Escobar.
== END 2022-06-11 17:52 | disposition home or self-care (01) ==
PROVIDERS: Physician Assistant; Emergency Provider Emergency Medicine; PCP Internal Medicine
DX: F33.1 Major depressive disorder, recurrent, moderate (principal); I10 Essential (primary) hypertension; Z20.822 Contact with and (suspected) exposure to COVID-19; Z20.828 Contact with and (suspected) exposure to other viral communicable diseases; Z79.899 Other long term (current) drug therapy
CPT/HCPCS: 36415; 80048; 80076; 80307; 81001; 81003; 82077; 83735; 84443; 85025; 87635; 99283